=== PATIENT | female | born 1965 | race Caucasian/White ===

== ENCOUNTER 2017-05-04 17:23 | Emergency (ER) | payer OTHER ==
[2017-05-04 17:35] VITALS: BMI 25.4
[2017-05-04] MEDS ORDERED: ALBUTEROL SO4 2.5/IPRATROPIUM 0.5 INH SOL 3 ML VIAL.NEB. NEB ONE ×3 (17:37→18:33)
--- NOTE | 2017-05-04 17:47 | PDOC ---
History of Present Illness - General Chief Complaint: Chest Pain Stated Complaint: CHEST PAIN Time Seen by Provider: 05/04/17 17:46 History Source: Patient Exam Limitations: No Limitations - History of Present Illness Initial Comments: 05/04/17 17:47 Patient is a 52 year old female with history of asthma with 2x intubations presenting with chest pain and lightheadedness for 2 hours. Patient was shopping with her daughter and started having a stabbing 7/10 pain in the center of her chest after running into the store. The pain initially radiated to her back and left side of her neck and was associated with a lightheadedness that lasted about 2 minutes, nausea w/o vomiting and a headache. In the ED the patient is diffusely wheezy, short of breath and endorsing residual chest discomfort with a stiffness in her left neck. Patient endorses having these symptoms multiple times in the past. Patient also endorses a history of palpitations but denies any temporal relationship to the chest pain. Denies fever, chills, current headache, abdominal pain nausea, vomiting, diarrhea, constipation and dysurea, Patient is post menopausal (late 30s) and denies any recent immobilization, travel or surgeries. Patient smoked 1 pack a week for 15 years and stopped 15 years ago. Denies drug use. Endorses a significant family history of heart problems at an early age including her mother, father and brother. Jai Alai Player: Dr. Bearden Past History - Past Medical History Allergies/Adverse Reactions: Allergies Allergy/AdvReac Type Severity Reaction Status Date / Time No Known Allergies Allergy Verified 05/04/17 17:31 Home Medications: Ambulatory Orders Albuterol 0.083% Nebulizer Denise [Ventolin 0.083% Nebulizer Soln -] 1 neb NEB ONCE 05/04/17 Aspirin [ASA -] 81 mg PO DAILY 05/04/17 Cetirizine HCl [Zyrtec -] 10 mg PO DAILY 05/04/17 Montelukast Na [Singulair -] 10 mg PO HS 05/04/17 Prednisone [Prednisone 50 MG TABLETS] 50 mg PO DAILY #7 tablet 05/04/17 Asthma: Yes (2 INTUBATIONS.) Cardiac Disorders: Yes (MITRAL VALVE PROLAPSE) - Surgical History Abdominal Surgery: No - Immunization History Immunization Up to Date: Yes - Suicide/Smoking/Psychosocial Hx Smoking Status: No Smoking History: Never smoked Have you smoked in the past 12 months: No Number of Cigarettes Smoked Daily: 0 Information on smoking cessation initiated: No Hx Alcohol Use: No Drug/Substance Use Hx: No Substance Use Type: None Review of Systems - Review of Systems Able to Perform ROS?: Yes Comments:: GEN: Denies fever, chills, recent illness HEENTM: Denies sore throat, Changes in vision, Changes in hearing Respiratory: Endorses Shortness of Breath; Denies Cough Cardiac: Endorses Chest Pain/discomfort, lightheadedness ; Denies Syncope ABD/GI: Endorses Nausea; Denies Abdominal Pain, Vomiting, Diarrhea, Constipation : Denies Dysuria, Burning on urination, Vaginal bleeding Musculoskeletal: Endorses neck pain, upper back pain; Denies muscle or joint pain Integumentary: Denies diaphoresis, rashes, bruises Neurological: Endorses JORGENSEN; Denies dizziness, weakness All Other Systems Reviewed and Negative Is the patient limited Bhutanese proficient: No *Physical Exam - Vital Signs Last Vital Signs Temp Pulse Resp BP Pulse Ox 98.0 F 78 18 116/78 97 05/04/17 17:31 05/04/17 17:31 05/04/17 17:31 05/04/17 17:31 05/04/17 17:31 - Physical Exam Comments: GENERAL: AAOx3, nourished and generally well appearing, obese, NAD HEAD: NCAT EYES: PERRLA, EOMI, sclera anicteric, conjunctiva clear ENT: Auricles normal inspection, hearing grossly normal, nares patent, no nasal discharge, no congestion, oropharynx clear without exudates, MMM NECK: supple, normal ROM, no LAD, no JVD, no masses RESP: speaking in full sentences, lungs diffusely wheezy, L>>R, symmetrical chest expansion, no apparent respiratory distress HEART: RRR, normal S1-S2, no MRG, peripheral pulses normal and equal bilaterally ABDOMEN: soft, NTND, nlBSx4, no guarding, no rebound, no masses MUSCULOSKELETAL: no CVA Tenderness EXTREMITIES: normal inspection, moving all extremities, full ROM, strength 5/5, sensation grossly intact NEUROLOGICAL: CN II-XII grossly intact, normal speech, normal gait, no focal sensorimotor deficits SKIN: warm, dry, normal turgor, no rashes or lesions noted. Heart Score/ECG Review - History History: Slightly suspicious - Electrocardiogram EKG: Normal - Age Age: 45-65 - Risk Factors Risk Factors Heart Score: Yes Smoking History, Yes Positive family hx of cardiac disease, Yes Hx Obesity Based on the list above the patient has:: >/=3 risk factors or Hx atherosclerotic disease - Troponin Troponin: </= normal limit - Score Heart Score - Total: 3 ED Treatment Course - LABORATORY CBC & Chemistry Diagram: 05/04/17 18:09 05/04/17 18:00 - Medications Given in the ED: ED Medications Discontinued Medications Generic Name Dose Route Start Last Admin Trade Name Freq PRN Reason Stop Dose Admin Albuterol/Ipratropium 1 amp 05/04/17 17:37 05/04/17 17:37 Duoneb - NEB 05/04/17 17:38 1 amp NOW ONE Administration Medical Decision Making - Medical Decision Making 52 yo female with history of asthma and fh of heart problems and chest pains on exertion 2 hours ago. Presents to the ED with difficulty breathing and wheezy lungs ddx includes but but is not limited ACS, asthma exacerbation, PE, anxiety steroids, duoneb, mag fluids cbc/cmp monitor and reassess 05/04/17 18:06 EKG reviewed Wells score 0 CBC WBC 10.6 K/mm3 (4.0-10.0) H 05/04/17 18:09 RBC 4.34 M/mm3 (3.60-5.2) 05/04/17 18:09 Hgb 13.3 GM/dL (10.7-15.3) 05/04/17 18:09 Hct 39.4 % (32.4-45.2) 05/04/17 18:09 MCV 90.8 fl (80-96) 05/04/17 18:09 MCH 30.7 pg (25.7-33.7) 05/04/17 18:09 MCHC 33.8 g/dl (32.0-36.0) 05/04/17 18:09 RDW 12.4 % (11.6-15.6) 05/04/17 18:09 Plt Count 252 K/MM3 (134-434) 05/04/17 18:09 MPV 8.2 fl (7.5-11.1) 05/04/17 18:09 Neutrophils % 58.2 % (42.8-82.8) 05/04/17 18:09 Lymphocytes % 24.2 % (8-40) 05/04/17 18:09 Monocytes % 7.6 % (3.8-10.2) 05/04/17 18:09 Eosinophils % 8.9 % (0-4.5) H 05/04/17 18:09 Basophils % 1.1 % (0-2.0) 05/04/17 18:09 mild leukocytosis consistent with a stress reaction. 05/04/17 18:46 Laboratory Tests 05/04/17 18:09 Troponin I < 0.02 enzymes reassuring for ACS Heart score 1-3, low risk 05/04/17 18:54 CMP Sodium 143 mmol/L (136-145) 05/04/17 18:00 Potassium 3.9 mmol/L (3.5-5.1) 05/04/17 18:00 Chloride 106 mmol/L (98-107) 05/04/17 18:00 Carbon Dioxide 29 mmol/L (21-32) 05/04/17 18:00 Anion Gap 8 (8-16) 05/04/17 18:00 BUN 14 mg/dL (7-18) D 05/04/17 18:00 Creatinine 0.7 mg/dL (0.55-1.02) 05/04/17 18:00 Creat Clearance w eGFR > 60 (>60) 05/04/17 18:00 Random Glucose 99 mg/dL (74-106) 05/04/17 18:00 Calcium 8.5 mg/dL (8.5-10.1) 05/04/17 18:00 Total Bilirubin 0.2 mg/dL (0.2-1.0) 05/04/17 18:00 AST 16 U/L (15-37) D 05/04/17 18:00 ALT 28 U/L (12-78) D 05/04/17 18:00 Alkaline Phosphatase 86 U/L (45-117) D 05/04/17 18:00 Creatine Kinase 69 IU/L (26-192) 05/04/17 18:09 Troponin I < 0.02 ng/ml (0.00-0.05) 05/04/17 18:09 Total Protein 7.2 g/dl (6.4-8.2) 05/04/17 18:00 Albumin 3.9 g/dl (3.4-5.0) 05/04/17 18:00 TSH 1.82 uIU/ml (0.358-3.74) 05/04/17 18:20 Within normal limits 05/04/17 19:03 On reassessment patient still has significant wheezing in the left lung, possible admission. Patient care signed out the Dr. Putnam and the night team *DC/Admit/Observation/Transfer Diagnosis at time of Disposition: Asthma exacerbation Qualifiers: Asthma severity: unspecified severity Asthma persistence: unspecified Qualified Code(s): J45.901 - Unspecified asthma with (acute) exacerbation - Discharge Dispostion Disposition: HOME Condition at time of disposition: Good - Prescriptions Prescriptions: Prednisone [Prednisone 50 MG TABLETS] 50 mg PO DAILY #7 tablet - Referrals Referrals: Ramiro Chery [Primary Care Provider] - - Patient Instructions Printed Discharge Instructions: DI for Asthma -- Adult
--- NOTE | 2017-05-04 18:00 | PDOC ---
Attending Attestation - HPI HPI: 05/04/17 18:26 The patient is a 52 year old female, with a significant past medical history of asthma(2 intubations) and mitral valve prolapse, who presents to the emergency department with wheezing, chest pain, and lightheadedness for approximately 2 hours. Patient reports she became wheezy s/p running into the supermarket. Patient reports chest pain secondary to wheezing, but denies any diaphoresis, palpitations, or lower extremity edema. She denies any fever, chills, cough, or sore throat. - Physicial Exam PE: 05/04/17 18:26 GENERAL: Awake, alert, and fully oriented, in no acute distress HEAD: No signs of trauma EYES: PERRLA, EOMI, sclera anicteric, conjunctiva clear ENT: Auricles normal inspection, hearing grossly normal, nares patent, oropharynx clear without exudates. Moist mucosa NECK: Normal ROM, supple, no lymphadenopathy, JVD, or masses LUNGS: Diffuse wheezing. Breath sounds equal. No crackles HEART: Tachycardic. Regular rhythm, normal S1 and S2, no murmurs, rubs or gallops ABDOMEN: Soft, nontender, normoactive bowel sounds. No guarding, no rebound. No masses EXTREMITIES: Normal range of motion, no edema. No clubbing or cyanosis. No cords, erythema, or tenderness NEUROLOGICAL: Cranial nerves II through XII grossly intact. Normal speech, normal gait SKIN: Warm, Dry, normal turgor, no rashes or lesions noted. - Medical Decision Making 05/04/17 18:26 Documentation prepared by Dian Cartagena, acting as director medical surgical for Jaymie Leblanc DO. <Dian Cartagena - Last Filed: 05/04/17 18:29> - Resident Resident Name: Tutu Cornejo - ED Attending Attestation I have performed the following: I have examined & evaluated the patient, The case was reviewed & discussed with the resident, I agree w/resident's findings & plan, Exceptions are as noted - Critical Care Time Total Critical Care Time: 30 Critical Care Statement: The care of this patient involved high complexity decision making to prevent further life threatening deterioration of the patient 's condition and/or to evaluate & treat vital organ system(s) failure or risk of failure. - Medical Decision Making 05/04/17 18:00 I, Dr. Jaymie Leblanc, DO, attest that this document has been prepared under my direction and personally reviewed by me in its entirety. I further attest, that it accurately reflects all work, treatment, procedures and medical decision -making performed by me. 05/04/17 18:32 a/p: 52yo female with CP w exertion, but also an asthma exacerbation -ekg -labs -cxr -ivf -mag -trop -reassess <Jaymie Leblanc - Last Filed: 05/04/17 19:06> Heart Score/ECG Review - ECG Intrepretation Comment:: 05/04/17 18:33 sinus at 76, nl axis, nl interval, no acute st/t wave findings <Jaymie Leblanc - Last Filed: 05/04/17 19:06>
[2017-05-04] MEDS ORDERED: methylPREDNISolone NA SUCC 125 MG/2 ML VIAL IVPB ONE (18:07)
[2017-05-04 18:16] LABS: BASOPHIL 1.1 % (0-2.0)
[2017-05-04 18:19] LABS: EOSINOPHIL 8.9 % (0-4.5); MCH 30.7 pg (25.7-33.7); MCHC 33.8 g/dl (32.0-36.0); MEAN CELL VOLUME 90.8 fl (80-96); MEAN PLT VOLUME 8.2 fl (7.5-11.1); NEUTROPHILS 58.2 % (42.8-82.8); PLATELET COUNT 252 K/MM3 (134-434); RDW 12.4 % (11.6-15.6); WHITE BLOOD COUNT 10.6 K/mm3 (4.0-10.0)
[2017-05-04 18:27] VITALS: PULSE 69; TEMP 98.2
[2017-05-04] MEDS ORDERED: MAGNESIUM SULF 50% (8.12 MEQ/2 ML-1 GM VIAL) IVPB ONE (18:32)
[2017-05-04] MEDS ORDERED: methylPREDNISolone NA SUCC 125 MG/2 ML VIAL ONE (18:33)
[2017-05-04] MEDS ORDERED: SODIUM CHLORIDE 1,000 ML IV STA (18:38)
[2017-05-04 18:39] LABS: CPK 69 IU/L (26-192)
[2017-05-04 18:40] LABS: TROPONIN I < 0.02 ng/ml (0.00-0.05)
[2017-05-04 18:44] LABS: ALBUMIN 3.9 g/dl (3.4-5.0); ANION GAP 8 (8-16); CALCIUM 8.5 mg/dL (8.5-10.1); CO2 29 mmol/L (21-32); CREATININE 0.7 mg/dL (0.55-1.02); GLUCOSE,RANDOM 99 mg/dL (74-106); SGOT/AST 16 U/L (15-37); TOT PROT 7.2 g/dl (6.4-8.2)
[2017-05-04] MEDS ORDERED: MAGNESIUM SULF 50% (8.12 MEQ/2 ML-1 GM VIAL) ONE (18:45)
[2017-05-04 18:50] LABS: ALK PHOS 86 U/L (45-117); BILIRUBIN,TOTAL 0.2 mg/dL (0.2-1.0); SGPT/ALT 28 U/L (12-78)
[2017-05-04 18:59] VITALS: BP 110/80
--- NOTE | 2017-05-04 19:26 | PDOC ---
*Physical Exam - Vital Signs Last Vital Signs Temp Pulse Resp BP Pulse Ox 98.2 F 69 20 110/80 97 05/04/17 18:18 05/04/17 18:18 05/04/17 18:18 05/04/17 18:57 05/04/17 18:18 ED Treatment Course - LABORATORY CBC & Chemistry Diagram: 05/04/17 18:09 05/04/17 18:00 - ADDITIONAL ORDERS Additional order review: Laboratory Results 05/04/17 05/04/17 05/04/17 18:20 18:09 18:00 Sodium 143 Potassium 3.9 Chloride 106 Carbon Dioxide 29 Anion Gap 8 BUN 14 D Creatinine 0.7 Creat Clearance w eGFR > 60 Random Glucose 99 Calcium 8.5 Total Bilirubin 0.2 AST 16 D ALT 28 D Alkaline Phosphatase 86 D Creatine Kinase 69 Troponin I < 0.02 Total Protein 7.2 Albumin 3.9 TSH 1.82 05/04/17 18:09 RBC 4.34 MCV 90.8 MCHC 33.8 RDW 12.4 MPV 8.2 Neutrophils % 58.2 Lymphocytes % 24.2 Monocytes % 7.6 Eosinophils % 8.9 H Basophils % 1.1 - Medications Given in the ED: ED Medications Discontinued Medications Generic Name Dose Route Start Last Admin Trade Name Freq PRN Reason Stop Dose Admin Albuterol/Ipratropium 1 amp 05/04/17 17:37 05/04/17 17:37 Duoneb - NEB 05/04/17 17:38 1 amp NOW ONE Administration Albuterol/Ipratropium 1 amp 05/04/17 18:09 05/04/17 18:43 Duoneb - NEB 05/04/17 18:10 1 amp ONCE ONE Administration Magnesium Sulfate 1 gm 05/04/17 18:32 05/04/17 18:57 Magnesium Sulfate IVPB 05/04/17 18:33 1 gm ONCE ONE Administration Methylprednisolone Sodium Succinate 125 mg 05/04/17 18:07 05/04/17 18:43 Solu-Medrol - IVPB 05/04/17 18:08 125 mg ONCE ONE Administration Medical Decision Making - Medical Decision Making 05/04/17 19:26 Care taken over from Dr. Cornejo. 05/04/17 19:38 Patient examined after 2nd duoneb treatment. Currently resting comfortably without mask and breathing well. No complaints. Slight wheeze heard on auscultation of upper lobe of right lung but otherwise clear. Will re-evaluate periodically to ensure stable. 05/04/17 22:14 Patient comfortable, stable, and clear to auscultation. Will discharge with instructions to follow-up with PCP this week. Patient verbalized understanding, copy of labs given. 05/04/17 22:23 Rx for week of prednisone given as well for bridge therapy. *DC/Admit/Observation/Transfer Diagnosis at time of Disposition: Asthma exacerbation Qualifiers: Asthma severity: unspecified severity Asthma persistence: unspecified Qualified Code(s): J45.901 - Unspecified asthma with (acute) exacerbation - Discharge Dispostion Disposition: HOME - Prescriptions Prescriptions: Prednisone [Prednisone 50 MG TABLETS] 50 mg PO DAILY #7 tablet - Referrals Referrals: Ramiro Chery [Primary Care Provider] - - Patient Instructions Printed Discharge Instructions: DI for Asthma -- Adult
[2017-05-04 20:58] LABS: URINE APPEARANCE CLEAR; URINE BILIRUBIN NEGATIVE (NEGATIVE); URINE BLOOD 2+ (NEGATIVE); URINE COLOR YELLOW; URINE GLUCOSE (UA) NEGATIVE (NEGATIVE); URINE KETONE NEGATIVE (NEGATIVE); URINE NITRITE NEGATIVE (NEGATIVE); URINE PROTEIN NEGATIVE (NEGATIVE); URINE UROBILINOGEN NEGATIVE mg/dL (0.2-1.0)
[2017-05-04 21:11] LABS: URINE BACTERIA RARE /hpf (NONE SEEN); URINE MUCUS RARE; URINE RBC 4 /hpf (0-3); URINE WBC 1 /hpf (3-5)
[2017-05-05 11:27] LABS: URINE LEUK ESTERASE Negative (NEGATIVE)
--- NOTE | 2017-05-05 12:46 | EKG ---
Test Reason : Blood Pressure : / mmHG Vent. Rate : 076 BPM Atrial Rate : 076 BPM P-R Int : 144 ms QRS Dur : 090 ms QT Int : 394 ms P-R-T Axes : 077 072 065 degrees QTc Int : 443 ms NORMAL SINUS RHYTHM INCOMPLETE RBBB WHEN COMPARED WITH ECG OF 20-SEP-2015 14:13, NO SIGNIFICANT CHANGE WAS FOUND Confirmed by GLORIA MUSE MD ([id number]) on 05/05/2017 12:46:24 PM Referred By: Confirmed By:GLORIA MUSE MD
== END 2017-05-04 22:47 | disposition home or self-care (01) ==
LOC: JER 17:23
PROC: 3E0F7GC Introduction of Other Therapeutic Substance into Respiratory Tract, Via Natural or Artificial Opening (ICD-10-PCS; principal; 2017-05-04)
PROC: 3E0F7GC Introduction of Other Therapeutic Substance into Respiratory Tract, Via Natural or Artificial Opening (ICD-10-PCS; 2017-05-04)
PROC: 3E0333Z Introduction of Anti-inflammatory into Peripheral Vein, Percutaneous Approach (ICD-10-PCS; 2017-05-04)
PROC: 3E033GC Introduction of Other Therapeutic Substance into Peripheral Vein, Percutaneous Approach (ICD-10-PCS; 2017-05-04)
DX: J45.901 Unspecified asthma with (acute) exacerbation (principal)
CPT/HCPCS: 36415; 71010-TC; 80053; 81003; 81015; 82550; 84443; 84484; 85025; 93005; 93010; 99284-25

== ENCOUNTER 2018-04-09 16:25 | Observation (INO) | payer OTHER ==
--- NOTE | 2018-04-09 16:38 | PDOC ---
Rapid Medical Evaluation Chief Complaint: Lightheaded Time Seen by Provider: 04/09/18 16:33 Medical Evaluation: Allergies Allergy/AdvReac Type Severity Reaction Status Date / Time No Known Allergies Allergy Verified 05/04/17 17:31 04/09/18 16:34 I have performed a brief in person evaluation of this patient. 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 No CV hx, no hx of AAA. PE: Skin: Clear Heart: RRR Lungs: Clear MS: Moves all extremities without difficulty Neuro: Appropriate affect, smile symmetric, negative Rhomberg Psych: appropriate affect I have ordered: CV protocol The patient will proceed to the ED for further evaluation. Discharge Disposition - Referrals Referrals: Ramiro Chery [Primary Care Provider] - - Patient Instructions - Post Discharge Activity
--- NOTE | 2018-04-09 17:01 | PDOC ---
History of Present Illness - General Chief Complaint: Lightheaded Stated Complaint: CHEST PAIN Time Seen by Provider: 04/09/18 16:33 - History of Present Illness Initial Comments: 04/09/18 17:34 The patient is a 53 year old female with a history of Asthma who presents for evaluation of chest pain. The patient reports that over the past few months, she has been having intermittent chest pressure that has been getting more frequent and progressively worse. She states that the pressure worsens with exertion as well. She states today she experienced and episode of severe chest pressure with numbness to her left arm and left leg with associated nausea and 2 episodes of non-bilious, non-bloody vomiting prompting her presentation to the ED for further evaluation. She otherwise denies fevers, chills, SOB, abdominal pain, or changes with urination or bowel movements. Past History - Past Medical History Allergies/Adverse Reactions: Allergies Allergy/AdvReac Type Severity Reaction Status Date / Time No Known Allergies Allergy Verified 04/09/18 16:38 Home Medications: Ambulatory Orders Albuterol 0.083% Nebulizer Denise [Ventolin 0.083% Nebulizer Soln -] 1 neb NEB QID PRN 05/04/17 Cetirizine HCl [Zyrtec -] 10 mg PO DAILY 05/04/17 Montelukast Na [Singulair -] 10 mg PO HS 05/04/17 Budesonide [Pulmicort 0.5 mg Nebulizer -] 1 neb NEB BID 04/10/18 Fluticasone Prop 0.05% Nasal [Flonase -] 1 - 2 spray NS BID 04/10/18 Ipratropium/Albuterol Sulfate [Combivent Respimat 20-100 Mcg] 2 puff IH BID LORazepam [Ativan] 0.5 mg PO DAILY 04/10/18 Lisinopril/Hydrochlorothiazide [Lisinopril-Hctz 10-12.5 mg Tab] 1 tab PO DAILY 04/10/18 Asthma: Yes (2 INTUBATIONS.) Cardiac Disorders: Yes (MITRAL VALVE PROLAPSE) COPD: No - Surgical History Abdominal Surgery: No - Immunization History Immunization Up to Date: Yes - Suicide/Smoking/Psychosocial Hx Smoking Status: No Smoking History: Never smoked Have you smoked in the past 12 months: No Number of Cigarettes Smoked Daily: 0 Information on smoking cessation initiated: No Hx Alcohol Use: Yes (social) Drug/Substance Use Hx: No Substance Use Type: None Review of Systems - Review of Systems Comments:: 04/09/18 17:38 Constitutional: No fevers, chills, fatigue, malaise HEENT: No Rhinorrhea, nasal congestion, visual changes Cardiovascular: Chest pressure. No syncope, palpitations, lightheadedness Respiratory: No Cough, SOB, Hemoptysis, Gastrointestinal: Nausea, vomiting. No Abdominal pain, Constipation, Diarrhea, Melena Genitourinary: No Dysuria, Frequency, Urgency, Hesitancy, Hematuria, Flank pain Musculoskeletal: No Myalgia, arthralgia Skin: No rashes, itching, bruising, pallor Neurologic: Numbness. No Headache, Dizziness, Weakness, or Tingling Psychiatric: No Hallucinations. No SI or HI *Physical Exam - Vital Signs Last Vital Signs Temp Pulse Resp BP Pulse Ox 98.7 F 97 H 17 123/82 99 04/09/18 16:34 04/09/18 16:34 04/09/18 16:34 04/09/18 16:34 04/09/18 16:34 - Physical Exam Comments: 04/09/18 17:39 General Appearance: Nourished. No Apparent Distress HEENT: No Pharyngeal Erythema, Tonsillar Exudate, Tonsillar Erythema Neck: No Cervical Lymphadenopathy Respiratory/Chest: Diffuse inspiratory and expiratory wheezing noted on exam. No Crackles, Rales, Rhonchi, Cardiovascular: Regular Rhythm, Regular Rate. No Murmur, Gallops, Rubs Gastrointestinal/Abdominal: Normal Bowel Sounds, Soft. No Guarding, Rebound, Tenderness Musculoskeletal: No CVA Tenderness Extremity: Normal Capillary Refill Integumentary: Normal Color, Dry, Warm Neurologic: Fully Oriented, Alert, Normal Mood/Affect, Normal Response, Heart Score/ECG Review - History History: Moderately suspicious - Electrocardiogram EKG: Non specific repolarization disturbance - Age Age: 45-65 - Risk Factors Risk Factors Heart Score: Yes Hx Hypertension, Yes Positive family hx of cardiac disease Based on the list above the patient has:: 1-2 risk factors - Troponin Troponin: </= normal limit - Score Heart Score - Total: 4 #1 ECG reviewed & interpreted by me at: 17:40 General ECG Interpretation: Sinus Rhythm, Normal Rate, Normal Intervals, No acute ischemic changes Compared to previous ECG there are: Changes noted (05/04/17) 04/09/18 17:40 T-wave inversions in leads V1-v3 Right ventricular Conduction delay ED Treatment Course - LABORATORY CBC & Chemistry Diagram: 04/10/18 05:30 04/10/18 05:30 Medical Decision Making - Medical Decision Making 04/09/18 17:42 The patient is a 53 year old female with a history of Asthma who presents for evaluation of chest pain. Differential includes but is not limited to: ACS, Arrhythmia, Asthma, PE, Infectious, Metabolic Derangement. Given the patient's history and physical exam, we will obtain a cbc, cmp, troponin, d-dimer, ekg chest plain film to evaluate further. We will treat the patient with iv fluids , zofran, mag, duonebs, and prednisone. We will continue to monitor and reassess while here in the ED. 04/09/18 20:35 CBC, cmp, troponin, d-dimer are unremarkable. Chest plain film is unremarkable. Given the patient's history and physical exam, we believe the patient requires observation admission for further monitoring and management. We discussed the case with the admitting team who accepted the patient for admission. *DC/Admit/Observation/Transfer Diagnosis at time of Disposition: Chest pain Qualifiers: Chest pain type: unspecified Qualified Code(s): R07.9 - Chest pain, unspecified - Discharge Dispostion Disposition: HOME Condition at time of disposition: Improved Decision to Admit order: Yes - Referrals - Patient Instructions - Post Discharge Activity
[2018-04-09 17:06] LABS: BASO % 1.2 % (0-2.0); EOS % 2.6 % (0-4.5); HEMATOCRIT 39.8 % (32.4-45.2); HEMOGLOBIN 13.4 GM/dL (10.7-15.3); LYMPH % 32.9 % (8-40); MCH 30.7 pg (25.7-33.7); MCHC 33.7 g/dl (32.0-36.0); MEAN CELL VOLUME 91.2 fl (80-96); MEAN PLT VOLUME 8.2 fl (7.5-11.1); MONO % 9.6 % (3.8-10.2); NEUT % 53.7 % (42.8-82.8); PLATELET COUNT 272 K/MM3 (134-434); RBC 4.37 M/mm3 (3.60-5.2); RDW 12.7 % (11.6-15.6); WHITE BLOOD COUNT 8.3 K/mm3 (4.0-10.0)
[2018-04-09] MEDS ORDERED: ONDANSETRON 4 MG/2 ML VIAL IVPUSH ONE (17:21)
[2018-04-09] MEDS ORDERED: SODIUM CHLORIDE 1,000 ML IV STA (17:21)
[2018-04-09] MEDS ORDERED: ALBUTEROL SO4 2.5/IPRATROPIUM 0.5 INH SOL 3 ML VIAL.NEB. NEB ONE ×2 (17:21→17:33)
[2018-04-09] MEDS ORDERED: MAGNESIUM SULF 50% (8.12 MEQ/2 ML-1 GM VIAL) IVPB ONE (17:21)
[2018-04-09] MEDS ORDERED: ONDANSETRON 4 MG/2 ML VIAL ONE (17:33)
[2018-04-09] MEDS ORDERED: MAGNESIUM 1GM/D5W - 1 GM/100 ML IVPB IVPB ONE (17:34)
[2018-04-09] MEDS ORDERED: predniSONE 20 MG TABLET (UD) PO ONE (17:34)
[2018-04-09 17:37] LABS: ALBUMIN 4.3 g/dl (3.4-5.0); ANION GAP 7 MMOL/L (8-16); BILIRUBIN,TOTAL 0.4 mg/dL (0.2-1); BLOOD UREA NITROGEN 12 mg/dL (7-18); CALCIUM 8.8 mg/dL (8.5-10.1); CHLORIDE 106 mmol/L (98-107); CO2 26 mmol/L (21-32); CREATININE 0.8 mg/dL (0.55-1.3); GLUCOSE,RANDOM 99 mg/dL (74-106); POTASSIUM 3.9 mmol/L (3.5-5.1); SGOT/AST 43 U/L (15-37); SGPT/ALT 83 U/L (13-61); SODIUM 139 mmol/L (136-145); TOT PROT 7.7 g/dl (6.4-8.2)
[2018-04-09 17:40] LABS: ALK PHOS 120 U/L (45-117)
[2018-04-09] MEDS ORDERED: predniSONE 20 MG TABLET (UD) ONE (17:45)
--- NOTE | 2018-04-09 18:48 | PDOC ---
Attending Attestation - Resident Resident Name: Nando Saldivar - ED Attending Attestation I have performed the following: I have examined & evaluated the patient, The case was reviewed & discussed with the resident, I agree w/resident's findings & plan, Exceptions are as noted - HPI HPI: 04/09/18 18:53 53 F with h/o asthma presenting with chest pain. Pt reports chest pressure that is worse with exertion. Also endorses DORANTES but no SOB at rest. Denies F/C. Denies cough. Denies leg swelling, no recent travel/immobilization. - Physicial Exam PE: 04/09/18 18:56 "GENERAL: Awake, alert, and fully oriented, in no acute distress. HEAD: No signs of trauma EYES: PERRLA, EOMI, sclera anicteric, conjunctiva clear ENT: Auricles normal inspection, hearing grossly normal, nares patent, oropharynx clear without exudates. Moist mucosa NECK: Nontender, no stepoffs, Normal ROM, supple, no lymphadenopathy, JVD, or masses LUNGS: + wheezing bilaterally HEART: Regular rate and rhythm, normal S1 and S2, no murmurs, rubs or gallops ABDOMEN: Soft, nontender, normoactive bowel sounds. No guarding, no rebound. No masses EXTREMITIES: Normal range of motion, no edema. No clubbing or cyanosis. No cords, erythema, or tenderness NEUROLOGICAL: Cranial nerves II through XII intact. 5/5 strength and sensation in all extremities, Normal speech, normal gait, normal cerebellar function SKIN: Warm, Dry, normal turgor, no rashes or lesions noted." - Critical Care Time Total Critical Care Time: 45 Critical Care Statement: The care of this patient involved high complexity decision making to prevent further life threatening deterioration of the patient 's condition and/or to evaluate & treat vital organ system(s) failure or risk of failure. - Medical Decision Making 04/09/18 19:07 53 F with exertional chest pain. Will need ACS evaluation as pt has new TWI on EKG. Will also tx for asthma flare given wheezing on exam. - Labs, trop, ddimer - CXR - Nebs, steroids - Admit
--- NOTE | 2018-04-09 19:29 | PN ---
Teaching Attending Note Name of Resident: Jennifer Holman ATTENDING PHYSICIAN STATEMENT I saw and evaluated the patient. I reviewed the resident's note and discussed the case with the resident. I agree with the resident's findings and plan as documented. SUBJECTIVE: Patient is a 53 year old woman with a history of Mitral Valve Prolapse, incomplete RBBB, tobacco use and Asthma (intubated twice) who presents for evaluation of chest pain. The patient reports that over the past few months, she has been having intermittent chest pressure that has been getting more frequent and progressively worse. She states that the pressure worsens with exertion as well. She states today she experienced and episode of severe chest pressure with numbness to her left arm and left leg with associated nausea and 2 episodes of non-bilious, non-bloody vomiting prompting her presentation to the ED for further evaluation. She has had multiple ER visits in the past for chest pain and has a strong FH of CAD. She otherwise denies fevers, chills, SOB , abdominal pain, or changes with urination or bowel movements. OBJECTIVE: Alert Vital Signs Period Temp Pulse Resp BP Sys/Lynne Pulse Ox Last 24 Hr 98.7 F 97 17 123/82 99 HEENT: No Jaundice, eye redness or discharge, PERRLA, EOMI. Normocephalic, atraumatic. External ears are normal and hearing is grossly intact. No nasal discharge. Neck: Supple, nontender. No palpable adenopathy or thyromegaly. No JVD Chest: Good effort. Expiratory wheezing. Heart: Regular. No S3, rub or murmur Abdomen: Not distended, soft, nontender and no HSM. No rebound or guarding. Normoactive bowel sounds. Ext: Peripheral pulses intact. No leg edema. Skin: Warm and dry. No petechiae, rash or ecchymosis. Neuro: Alert. Oriented x3. CN 2-12 grossly intact. Sensation grossly intact in all four extremities and DTR are symmetric. Home Medications Medication Instructions Recorded Albuterol 0.083% Nebulizer Denise 1 neb NEB PRN PRN 05/04/17 [Ventolin 0.083% Nebulizer Soln -] Aspirin [ASA -] 81 mg PO DAILY 05/04/17 Cetirizine HCl [Zyrtec -] 10 mg PO DAILY 05/04/17 Montelukast Na [Singulair -] 10 mg PO HS 05/04/17 Prednisone [Prednisone 50 MG 50 mg PO PRN PRN 04/09/18 TABLETS] Abnormal Lab Results 04/09/18 16:54 Anion Gap 7 L AST 43 H ALT 83 H Alkaline Phosphatase 120 H ASSESSMENT AND PLAN: 1. Chest pain - Pain is atypical. Troponin is normal and has new T wave inversion in V3. Will admit to telemetry to rule out ACS. Get ECHO and consult cardiology. Her CXR is hyperinflated - no acute pathology. Get upper abdominal sonogram and hepatitis serology and consult GI for elevated LFTs. Give duoneb, spiriva and symbicort. 2. DVT prophylaxis - Lovenox 40 mg SQ q 24 hours. 3. Advance directives - Full code
[2018-04-09] MEDS ORDERED: ALBUTEROL SO4 2.5/IPRATROPIUM 0.5 INH SOL 3 ML VIAL.NEB. NEB PRN (20:57)
[2018-04-09] MEDS ORDERED: ALPRAZolam 0.25 MG TABLET PO ONE (21:04)
--- NOTE | 2018-04-09 21:41 | HP ---
CHIEF COMPLAINT: Chest Pain PCP: Dr. Chery ([place], [place]) ELECTRICIAN POWERHOUSE: Dr. Bearden HISTORY OF PRESENT ILLNESS: 53 y/o F, accompanied by her sister and sisters sushila, with a PMHx of Asthma and recently diagnosed RBBB presents after experiencing Chest pain. For the past year, she has experienced numerous episodes of chest pain accompanied by neck stiffness that last 15-20 seconds and resolve with changes in position. Today while shopping, the chest pain felt more severe, came on suddenly and caused her to stop shopping and visit the ED. She describes the chest pain as mid-sternal pressure, at worst 10/10, that radiates to her neck. The pain does not change with movement or breathing and is not reproducible. She denies any recent trauma or rashes to the area. The chest pressure was accompanied by feeling jittery, nervousness, palpitations, and diaphoresis. It is 4/10 pain currently. She says that normally, she tries to stop herself from exertional activities before her Asthma flares; Denies any SOB accompanying todays episode. In January/February, Dulera (2 puffs daily) and Nucala (mepolizumab, 1 shot monthly) were added to her Asthma regimen. Since then, patient has noticed her BP has been elevated on routine checks (140s/120s) and she has experienced dyspnea on exertion. Today after receiving her third Nucala shot, she felt lightheaded as well as numbness and tingling in her left upper and lower extremity, and feeling like she would pass out if she closed her eyes. Patient says she is currently using her Ventolin inhaler ~25 times a week and waking up 13-15 times at night to use. Patient denies any other hx of high blood pressure, DM, CKD, HLD. ER course was notable for: (1) Duoneb x2, Zofran (2) NS Bolus (3) Prednisone 60mg PO Recent Travel: Visited [place] in February (to help daughter move for medical school) PAST MEDICAL HISTORY: Asthma s/p 2 intubations (7 years ago for asthma exacerbation, 9 years ago for Stachybotrys Chartarum exposure) MVP (as a child, she is unsure if recent echo done outpatient shows this however ) Anxiety GERD RBBB Early Menopause (LMP was at age 41) ?Sinus infection PAST SURGICAL HISTORY: DNC x1 Social History: Smoking: Denies current usage; 4 cigs x 10 years, quit 18 years ago Alcohol: Social Drugs: Denies Occupation: Owns her own business, provides medical services to outpatient office Residence: alone in apartment Ambulation: On her own without assist Family History: Father: DM, Asthma, Cardiac Stent placement (Unsure which vessel) Mother: Anxiety, DM, Triple Bypass, 2 MIs followed bypass Brother: IN @ age 50 Sister: Anxiety Allergies No Known Allergies Allergy (Verified 04/09/18 16:38) HOME MEDICATIONS: Home Medications Medication Instructions Recorded Albuterol 0.083% Nebulizer Denise 1 neb NEB PRN PRN 05/04/17 [Ventolin 0.083% Nebulizer Soln -] Aspirin [ASA -] 81 mg PO DAILY 05/04/17 Cetirizine HCl [Zyrtec -] 10 mg PO DAILY 05/04/17 Montelukast Na [Singulair -] 10 mg PO HS 05/04/17 Prednisone [Prednisone 50 MG 50 mg PO PRN PRN 04/09/18 TABLETS] REVIEW OF SYSTEMS CONSTITUTIONAL: Present: diaphoresis, Absent: fever, chills, generalized weakness, malaise, loss of appetite, weight change HEENT: Absent: rhinorrhea, nasal congestion, throat pain, throat swelling, difficulty swallowing, mouth swelling, ear pain, eye pain, visual changes CARDIOVASCULAR: Present: Chest pressure, palpitations, lightheadedness, Absent: syncope, irregular heart rate, peripheral edema RESPIRATORY: Present: dyspnea with exertion, Wheezing Absent: cough, shortness of breath, orthopnea, stridor, hemoptysis GASTROINTESTINAL: Absent: abdominal pain, abdominal distension, nausea, vomiting, diarrhea, constipation, melena, hematochezia GENITOURINARY: Absent: dysuria, frequency, urgency, hesitancy, hematuria, flank pain, genital pain MUSCULOSKELETAL: Absent: myalgia, arthralgia, joint swelling, back pain, neck pain SKIN: Absent: rash, itching, pallor HEMATOLOGIC/IMMUNOLOGIC: Absent: easy bleeding, easy bruising, lymphadenopathy, frequent infections ENDOCRINE: Absent: unexplained weight gain, unexplained weight loss, heat intolerance, cold intolerance NEUROLOGIC: Present: Headache, Numbness and tingling Absent: dizziness, unsteady gait, seizure, mental status changes, bladder or bowel incontinence PSYCHIATRIC: Present: Anxiety Absent: depression, suicidal or homicidal ideation, hallucinations. PHYSICAL EXAMINATION Vital Signs - 24 hr 04/09/18 04/09/18 16:34 19:05 Temperature 98.7 F 98.7 F Pulse Rate 97 H Pulse Rate [ 85 Right Radial] Respiratory 17 20 Rate Blood Pressure 123/82 Blood Pressure 135/75 [Right Arm] O2 Sat by Pulse 99 99 Oximetry (%) GENERAL: Awake, alert, and fully oriented, in no acute distress. HEAD: NCAT EYES: PERRL, EOMI THROAT: Oropharynx clear without exudates. Moist mucous membranes. NECK: No JVD LUNGS: Expiratory wheezing throughout mid and lower lung acosta HEART: Regular rate and rhythm, normal S1 and S2 without murmur. ABDOMEN: Soft, nontender, not distended, normoactive bowel sounds, no guarding MUSCULOSKELETAL: No CVA tenderness. EXTREMITIES: 2+ pulses, No calf tenderness. No peripheral edema. NEUROLOGICAL: Cranial nerves II-XII intact. Normal speech. PSYCHIATRIC: Cooperative. Good eye contact. SKIN: Warm, dry, no rashes or lesions noted. Laboratory Results - last 24 hr 04/09/18 04/09/18 04/09/18 16:54 16:54 18:00 WBC 8.3 RBC 4.37 Hgb 13.4 Hct 39.8 MCV 91.2 MCH 30.7 MCHC 33.7 RDW 12.7 Plt Count 272 MPV 8.2 Absolute Neuts (auto) 4.5 Neutrophils % 53.7 Lymphocytes % 32.9 D Monocytes % 9.6 Eosinophils % 2.6 Basophils % 1.2 Nucleated RBC % 0 D-Dimer 217 Sodium 139 Potassium 3.9 Chloride 106 Carbon Dioxide 26 Anion Gap 7 L BUN 12 Creatinine 0.8 Creat Clearance w eGFR > 60 Random Glucose 99 Calcium 8.8 Total Bilirubin 0.4 AST 43 H ALT 83 H Alkaline Phosphatase 120 H Creatine Kinase 93 Troponin I < 0.02 Total Protein 7.7 Albumin 4.3 ASSESSMENT/PLAN: 53 y/o F with a PMHx of Asthma and recently diagnosed RBBB presents after experiencing Chest pressure. Expiratory wheezes in the mid the lower lung acosta appreciated on exam. Found to have AST 43, ALT 83, Alk Phos 120. Troponin was < 0.02, D-Dimer was 217. CXR did not show any acute chest pathology on my read (pending official read). EKG showed a new t-wave inversion in V3. Patient will be observed on Tele. 1. R/O ACS - Trop x1 < 0.02 - Initial EKG shows T Wave inversion in V3 - Trend Trops, EKG - Ordered Lipid Profile, Echo - Cardiology (Dr. Bearden) consulted 2. Elevated AST and ALT - Patient mentions that her PCP has said she has had this in the past, but no workup has been done - RUQ Ultrasound and Hepatitis panel ordered - GI (Dr. Mart) consulted 3. Asthma - Pulomonology (Dr. Epstein) Consulted - Duonebs Q4 PRN 4. Anxiety - Given Alprazolam 0.5 mg x1 as patient says this is her home dose - Can restart once meds reconciled 5. FEN - PO Fluids - Lytes WNL - Diabetic, low cholesterol diet 6. PPx - DVT: Lovenox Dispo: Tele-Obs, will need med rec Visit type - Emergency Visit Emergency Visit: Yes ED Registration Date: 04/10/18 Care time: The patient presented to the Emergency Department on the above date and was hospitalized for further evaluation of their emergent condition. - New Patient This patient is new to me today: Yes Date on this admission: 04/10/18 - Critical Care Critical Care patient: No Hospitalist Screening - Colonoscopy Questionnaire Colonoscopy Questionnaire: Colonoscopy Questionnaire - Patient: 50 - 75 years old and never had a screening colonoscopy: Unknown History of colon or rectal polyps, or CA: Unknown History of IBD, Crohn's disease or UC: Unknown History of abdominal radiation therapy as a child: Unknown - Relative: 1 with colon or rectal CA, or polyps at age 60 or younger: Unknown Colon or rectal CA diagnosed at age 45 or younger: Unknown Multiple relatives with colon or rectal CA: Unknown - Outcome: Screening Result: Negative Screen
[2018-04-09 23:07] VITALS: BMI 26.6
[2018-04-09] MEDS ORDERED: ACETAMINOPHEN 500 MG TABLET (FP) PO ONE (23:15)
[2018-04-10 06:52] LABS: BASO % 0.4 % (0-2.0); HEMATOCRIT 38.5 % (32.4-45.2); HEMOGLOBIN 12.8 GM/dL (10.7-15.3); LYMPH % 16.4 % (8-40); MCH 30.6 pg (25.7-33.7); MCHC 33.4 g/dl (32.0-36.0); MEAN CELL VOLUME 91.6 fl (80-96); MEAN PLT VOLUME 8.6 fl (7.5-11.1); MONO % 5.1 % (3.8-10.2); NEUT % 78.1 % (42.8-82.8); PLATELET COUNT 258 K/MM3 (134-434); RDW 12.8 % (11.6-15.6); WHITE BLOOD COUNT 7.2 K/mm3 (4.0-10.0)
[2018-04-10 07:22] LABS: POTASSIUM 4.6 mmol/L (3.5-5.1)
[2018-04-10 09:21] LABS: ALBUMIN 3.9 g/dl (3.4-5.0); ANION GAP 9 MMOL/L (8-16); BLOOD UREA NITROGEN 9 mg/dL (7-18); CALCIUM 8.9 mg/dL (8.5-10.1); CHLORIDE 106 mmol/L (98-107); CO2 24 mmol/L (21-32); CREATININE 0.7 mg/dL (0.55-1.3); GLUCOSE,RANDOM 124 mg/dL (74-106); MAGNESIUM 2.6 mg/dL (1.8-2.4); SGOT/AST 40 U/L (15-37); SGPT/ALT 80 U/L (13-61); SODIUM 139 mmol/L (136-145)
[2018-04-10 09:25] LABS: ALK PHOS 104 U/L (45-117); BILIRUBIN,TOTAL 0.4 mg/dL (0.2-1); CHOLESTEROL 209 mg/dL (50-200); HDL CHOLESTEROL 73 mg/dL (40-60); TOT PROT 7.1 g/dl (6.4-8.2); TRIGLYCERIDES 48 mg/dL (0-150)
[2018-04-10] MEDS ORDERED: ENOXAPARIN NA (PORCINE) 40 MG/0.4 ML DISP.SYRIN SQ SCH (10:00)
--- NOTE | 2018-04-10 11:10 | EKG ---
Test Reason : Blood Pressure : / mmHG Vent. Rate : 078 BPM Atrial Rate : 078 BPM P-R Int : 152 ms QRS Dur : 108 ms QT Int : 414 ms P-R-T Axes : 053 033 029 degrees QTc Int : 471 ms NORMAL SINUS RHYTHM POSSIBLE LEFT ATRIAL ENLARGEMENT INCOMPLETE RIGHT BUNDLE BRANCH BLOCK T WAVE ABNORMALITY, CONSIDER ANTERIOR ISCHEMIA ABNORMAL ECG WHEN COMPARED WITH ECG OF 09-APR-2018 16:38, NO SIGNIFICANT CHANGE WAS FOUND Confirmed by WILBER MALONE MD ([id number]) on 04/10/2018 11:10:03 AM Referred By: Confirmed By:WILBER MALONE MD
--- NOTE | 2018-04-10 11:21 | CON.GI ---
Consult Consult Specialty:: GI Reason for Consultation:: elevated liver chemistry - History of Present Illness History of Present Illness: chart reviewed. Per initial encounter 04/09: Patient is a 53 year old woman with a history of Mitral Valve Prolapse, incomplete RBBB, tobacco use and Asthma ( intubated twice) who presents for evaluation of chest pain. The patient reports that over the past few months, she has been having intermittent chest pressure that has been getting more frequent and progressively worse. She states that the pressure worsens with exertion as well. She states today she experienced and episode of severe chest pressure with numbness to her left arm and left leg with associated nausea and 2 episodes of non-bilious, non-bloody vomiting prompting her presentation to the ED for further evaluation. She has had multiple ER visits in the past for chest pain and has a strong FH of CAD. She otherwise denies fevers, chills, SOB, abdominal pain, or changes with urination or bowel movements. Pt reports being told by her PCP she has elevated liver enzymes and fatty liver for the last 3 years. No documented history of overt liver disease, viral, or autoimmune hepatitis personally, or in the family. No chronic ETOH or NSAIDs. No history of pancreaticobiliary problems. ~15 lb over IBW, otherwise no metabolic risk factors. [id number] US/ABDOMEN US -LIMITED Right upper quadrant abdomen ultrasound Clinical information given: elevated liver function studies The liver demonstrates diffusely increased echogenicity consistent with fatty infiltration. The liver appears unremarkable in overall size. No obvious mass lesion is noted. The gallbladder appears moderately contracted which may be on a physiologic basis. Allowing for limiting gallbladder contraction there is no obvious evidence of cholelithiasis. No pericholecystic fluid is seen. The common bile duct diameter demonstrates no discrete abnormality measuring 0.3 cm. No free intraperitoneal fluid is noted. The pancreas is partially obscured due to overlapping bowel gas. No obvious pathology is seen. There is no right hydronephrosis. Impression: Diffuse hepatic steatosis is seen. The gallbladder is moderately contracted which may be physiologic in nature. No obvious calculus is visualized. If clinically indicated correlate with two-week follow- up sonography with optimal preparative fasting. There is no definite biliary tract dilatation. Reported By: Jesus Copeland MD 04/09/18 [id number] - History Source History Provided By: Patient, Medical Record - Past Medical History ...: No - Alcohol/Substance Use Hx Alcohol Use: Yes (social) - Smoking History Smoking history: Never smoked Have you smoked in the past 12 months: No Aproximately how many cigarettes per day: 0 Home Medications - Allergies Allergies/Adverse Reactions: Allergies Allergy/AdvReac Type Severity Reaction Status Date / Time No Known Allergies Allergy Verified 04/09/18 16:38 - Home Medications Home Medications: Ambulatory Orders Albuterol 0.083% Nebulizer Denise [Ventolin 0.083% Nebulizer Soln -] 1 neb NEB PRN PRN 05/04/17 Aspirin [ASA -] 81 mg PO DAILY 05/04/17 Cetirizine HCl [Zyrtec -] 10 mg PO DAILY 05/04/17 Montelukast Na [Singulair -] 10 mg PO HS 05/04/17 Prednisone [Prednisone 50 MG TABLETS] 50 mg PO PRN PRN 04/09/18 Family Disease History - Family Disease History Family History: Unremarkable Review of Systems Findings/Remarks: as per HPI, ED, H&P Physical Exam-GI Vital Signs: Vital Signs Temperature 97.6 F 04/10/18 05:00 Pulse Rate 62 04/10/18 05:00 Respiratory Rate 18 04/10/18 05:00 Blood Pressure 105/74 04/10/18 05:00 O2 Sat by Pulse Oximetry (%) 97 04/09/18 21:00 Constitutional: Yes: Well Nourished, No Distress, Calm Eyes: Yes: Conjunctiva Clear HENT: Yes: Atraumatic Neck: Yes: Supple Cardiovascular: Yes: Regular Rate and Rhythm Respiratory: Yes: Regular Gastrointestinal Inspection: No: Ascites, Distention ...Auscultate: Yes: Normoactive Bowel Sounds ...Palpate: Yes: Soft. No: Firm/Rigid, Guarding, Mass, Tenderness, Tenderness, Epigastium, Tenderness, Rebound Neurological: Yes: Alert, Oriented Labs: CBC, BMP 04/10/18 05:30 04/10/18 05:30 CBCD WBC 7.2 K/mm3 (4.0-10.0) 04/10/18 05:30 RBC 4.20 M/mm3 (3.60-5.2) 04/10/18 05:30 Hgb 12.8 GM/dL (10.7-15.3) 04/10/18 05:30 Hct 38.5 % (32.4-45.2) 04/10/18 05:30 MCV 91.6 fl (80-96) 04/10/18 05:30 MCHC 33.4 g/dl (32.0-36.0) 04/10/18 05:30 RDW 12.8 % (11.6-15.6) 04/10/18 05:30 Plt Count 258 K/MM3 (134-434) 04/10/18 05:30 MPV 8.6 fl (7.5-11.1) 04/10/18 05:30 CMP Sodium 139 mmol/L (136-145) 04/10/18 05:30 Potassium 4.6 mmol/L (3.5-5.1) 04/10/18 05:30 Chloride 106 mmol/L (98-107) 04/10/18 05:30 Carbon Dioxide 24 mmol/L (21-32) 04/10/18 05:30 Anion Gap 9 MMOL/L (8-16) 04/10/18 05:30 BUN 9 mg/dL (7-18) 04/10/18 05:30 Creatinine 0.7 mg/dL (0.55-1.3) 04/10/18 05:30 Creat Clearance w eGFR > 60 (>60) 04/10/18 05:30 Calcium 8.9 mg/dL (8.5-10.1) 04/10/18 05:30 Total Bilirubin 0.4 mg/dL (0.2-1) 04/10/18 05:30 AST 40 U/L (15-37) H 04/10/18 05:30 ALT 80 U/L (13-61) H 04/10/18 05:30 Alkaline Phosphatase 104 U/L (45-117) 04/10/18 05:30 Total Protein 7.1 g/dl (6.4-8.2) 04/10/18 05:30 Albumin 3.9 g/dl (3.4-5.0) 04/10/18 05:30 Laboratory Last Values WBC 7.2 K/mm3 (4.0-10.0) 04/10/18 05:30 RBC 4.20 M/mm3 (3.60-5.2) 04/10/18 05:30 Hgb 12.8 GM/dL (10.7-15.3) 04/10/18 05:30 Hct 38.5 % (32.4-45.2) 04/10/18 05:30 MCV 91.6 fl (80-96) 04/10/18 05:30 MCH 30.6 pg (25.7-33.7) 04/10/18 05:30 MCHC 33.4 g/dl (32.0-36.0) 04/10/18 05:30 RDW 12.8 % (11.6-15.6) 04/10/18 05:30 Plt Count 258 K/MM3 (134-434) 04/10/18 05:30 MPV 8.6 fl (7.5-11.1) 04/10/18 05:30 Absolute Neuts (auto) 5.6 K/mm3 (1.5-8.0) 04/10/18 05:30 Neutrophils % 78.1 % (42.8-82.8) D 04/10/18 05:30 Lymphocytes % 16.4 % (8-40) D 04/10/18 05:30 Monocytes % 5.1 % (3.8-10.2) 04/10/18 05:30 Eosinophils % 0.0 % (0-4.5) D 04/10/18 05:30 Basophils % 0.4 % (0-2.0) 04/10/18 05:30 Nucleated RBC % 0 % (0-0) 04/10/18 05:30 D-Dimer 217 ng/ml (0-500) 04/09/18 18:00 Sodium 139 mmol/L (136-145) 04/10/18 05:30 Potassium 4.6 mmol/L (3.5-5.1) 04/10/18 05:30 Chloride 106 mmol/L (98-107) 04/10/18 05:30 Carbon Dioxide 24 mmol/L (21-32) 04/10/18 05:30 Anion Gap 9 MMOL/L (8-16) 04/10/18 05:30 BUN 9 mg/dL (7-18) 04/10/18 05:30 Creatinine 0.7 mg/dL (0.55-1.3) 04/10/18 05:30 Creat Clearance w eGFR > 60 (>60) 04/10/18 05:30 Random Glucose 124 mg/dL (74-106) H 04/10/18 05:30 Calcium 8.9 mg/dL (8.5-10.1) 04/10/18 05:30 Phosphorus 4.0 mg/dL (2.5-4.9) 04/10/18 05:30 Magnesium 2.6 mg/dL (1.8-2.4) H 04/10/18 05:30 Total Bilirubin 0.4 mg/dL (0.2-1) 04/10/18 05:30 AST 40 U/L (15-37) H 04/10/18 05:30 ALT 80 U/L (13-61) H 04/10/18 05:30 Alkaline Phosphatase 104 U/L (45-117) 04/10/18 05:30 Creatine Kinase 93 IU/L (26-192) 04/09/18 16:54 Troponin I < 0.02 ng/ml (0.00-0.05) 04/09/18 22:50 Total Protein 7.1 g/dl (6.4-8.2) 04/10/18 05:30 Albumin 3.9 g/dl (3.4-5.0) 04/10/18 05:30 Triglycerides 48 mg/dL (0-150) 04/10/18 05:30 Cholesterol 209 mg/dL (50-200) H 04/10/18 05:30 Total LDL Cholesterol 135 mg/dL (5-100) H 04/10/18 05:30 HDL Cholesterol 73 mg/dL (40-60) H 04/10/18 05:30 Imaging - Results Ultrasound: Report Reviewed Problem List - Problems (1) Liver enzyme elevation Code(s): R74.8 - ABNORMAL LEVELS OF OTHER SERUM ENZYMES Assessment/Plan A 53F with mild transaminitis, ALT predominant. MIld dyslipidemia. US - fatty liver. The transaminitis is likely multifatorial and involves metabolic and medications (i .e prednisone) component. Recommend: 15 lb wt loss, healthy, low fat diet. Outpatient work up. Obtain HBV , HCV, HAV serology, BETTE, AMA, ASMA, ALKM-1. Discussed with the patient.
[2018-04-10] MEDS ORDERED: LORATADINE 10 MG TABLET PO ONE (12:15)
--- NOTE | 2018-04-10 12:24 | EKG ---
Test Reason : Blood Pressure : / mmHG Vent. Rate : 095 BPM Atrial Rate : 095 BPM P-R Int : 140 ms QRS Dur : 096 ms QT Int : 354 ms P-R-T Axes : 065 056 042 degrees QTc Int : 444 ms NORMAL SINUS RHYTHM POSSIBLE LEFT ATRIAL ENLARGEMENT RSR' OR QR PATTERN IN V1 SUGGESTS RIGHT VENTRICULAR CONDUCTION DELAY T WAVE ABNORMALITY, CONSIDER ANTERIOR ISCHEMIA ABNORMAL ECG WHEN COMPARED WITH ECG OF 04-MAY-2017 17:34, T WAVE INVERSION NOW EVIDENT IN ANTERIOR LEADS Confirmed by KIRA MATHUR, WILBER ([id number]) on 04/10/2018 12:24:20 PM Referred By: Confirmed By:WILBER MALONE MD
--- NOTE | 2018-04-10 12:34 | CON.PULM ---
Consult Consult Specialty:: PULM/CCM Referred by:: Hospitalist Reason for Consultation:: CP / asthma - History of Present Illness Chief Complaint: CP / HTN History of Present Illness: 53 F, asthma since the age of 10. Intubation x 2 (first about 9 years ago, last was 7 years ago). Baseline PEF 350. Not steroid dependent. Saw an driver trainer from [facility] and started on Dulera and Nucala around January. Received 3rd Nucala dose yesterday. Has noted for the past 2 months conjunctival injection and hypertension to SBP 140mm Hg. Overall does feel Asthma symptoms have improved. She does snore but has been screened for OSAS. Occasional GERD symptoms. She is scheduled for nasal polyp and deviated septal repair. CXR: clear - History Source History Provided By: Patient Limitations to Obtaining History: No Limitations - Past Medical History Pulmonary: Yes: Asthma, Bronchitis, Previously Intubated. No: O2 Dependent, Pneumonia, Pulmonary Embolus, Pulmonary Fibrosis ...: No - Alcohol/Substance Use Hx Alcohol Use: Yes (social) - Smoking History Smoking history: Never smoked Have you smoked in the past 12 months: No Aproximately how many cigarettes per day: 0 Home Medications - Allergies Allergies/Adverse Reactions: Allergies Allergy/AdvReac Type Severity Reaction Status Date / Time No Known Allergies Allergy Verified 04/09/18 16:38 - Home Medications Home Medications: Ambulatory Orders Albuterol 0.083% Nebulizer Denise [Ventolin 0.083% Nebulizer Soln -] 1 neb NEB PRN PRN 05/04/17 Aspirin [ASA -] 81 mg PO DAILY 05/04/17 Cetirizine HCl [Zyrtec -] 10 mg PO DAILY 05/04/17 Montelukast Na [Singulair -] 10 mg PO HS 05/04/17 Prednisone [Prednisone 50 MG TABLETS] 50 mg PO PRN PRN 04/09/18 Review of Systems - Review of Systems Constitutional: denies: Chills, Fever, Malaise, Night Sweats, Unintentional Wgt. Loss Eyes: reports: No Symptoms HENT: reports: No Symptoms Neck: reports: No Symptoms Cardiovascular: reports: Chest Pain. denies: Edema, Palpitations, Shortness of Breath Respiratory: reports: Cough, Snoring. denies: Hemoptysis, Orthopnea, SOB, SOB on Exertion, Wheezing Gastrointestinal: reports: No Symptoms Genitourinary: reports: No Symptoms Breasts: reports: No Symptoms Reported Musculoskeletal: reports: No Symptoms Integumentary: reports: No Symptoms Neurological: reports: No Symptoms Endocrine: reports: No Symptoms Hematology/Lymphatic: reports: No Symptoms Psychiatric: reports: No Symptoms Physical Exam Vital Sings: Vital Signs Temperature 97.8 F 04/10/18 09:00 Pulse Rate 61 04/10/18 09:00 Respiratory Rate 18 04/10/18 09:00 Blood Pressure 118/74 04/10/18 09:00 O2 Sat by Pulse Oximetry (%) 97 04/10/18 07:42 Constitutional: Yes: No Distress, Calm Eyes: Yes: Conjunctiva Clear, EOM Intact HENT: Yes: Atraumatic, Normocephalic Neck: Yes: Supple, Trachea Midline Respiratory: Yes: Regular, CTA Bilaterally, Cough. No: Accessory Muscle Use, On Nasal O2, Orthopnea, Rales, Rhonchi, SOB, Stridor, Tachypnea, Wheezes ...Inspection: Yes: WNL ...Clubbing: No Gastrointestinal: Yes: Normal Bowel Sounds, Soft Renal/: Yes: WNL Musculoskeletal: Yes: WNL Extremities: Yes: WNL Edema: No Peripheral Pulses WNL: Yes Integumentary: Yes: WNL Neurological: Yes: WNL, Alert, Oriented ...Motor Strength: WNL Psychiatric: Yes: WNL, Alert, Oriented Labs: CBC, BMP 04/10/18 05:30 04/10/18 05:30 Imaging - Results Chest X-ray: Report Reviewed, Image Reviewed Problem List - Problems (1) Samter's triad Code(s): J45.909 - UNSPECIFIED ASTHMA, UNCOMPLICATED; J33.9 - NASAL POLYP, UNSPECIFIED; Z88.6 - ALLERGY STATUS TO ANALGESIC AGENT STATUS (2) Chest pain Code(s): R07.9 - CHEST PAIN, UNSPECIFIED Qualifiers: Chest pain type: unspecified Qualified Code(s): R07.9 - Chest pain, unspecified (3) Asthma Code(s): J45.909 - UNSPECIFIED ASTHMA, UNCOMPLICATED (4) Atypical chest pain Code(s): R07.89 - OTHER CHEST PAIN Assessment/Plan CP and HTN not typical of Nucala use. Has been reports of dizziness and hypotension. Asthma appears stable at this point. If cleared by cardiology, no Pulmonary contraindication for D/C Patient should follow with her Music Autographer and either see me in my office of a [facility] Secretary Specialist (has never been evaluated by Pulmonary) No smoking No indication for systemic steroids No indication for ABX Will follow if remains admitted Thank you Dr Epstein
--- NOTE | 2018-04-10 14:09 | ECHO ---
Name: MANDY BARCENAS Exam:Adult Echocardiogram Study Date: 04/10/2018 08:12 AM Age: 53 yrs Reason For Study: R/O ACS Height: 64 in Weight: 150 lb BSA: 1.7 m2 MMode/2D Measurements & Calculations IVSd: 0.79 cm Ao root diam: 2.5 cm LVIDd: 4.1 cm LA dimension: 2.9 cm LVIDs: 2.7 cm LVPWd: 0.84 cm EDV(Teich): 75.8 ml ESV(Teich): 27.6 ml Doppler Measurements & Calculations MV E max angelita: 72.8 cm/sec MR max angelita: 337.5 cm/sec MV A max angelita: 90.7 cm/sec MR max P.6 mmHg MV E/A: 0.80 MV dec time: 0.19 sec TR max angelita: 160.2 cm/sec Med Peak E' Angelita: 7.3 cm/sec TR max P.3 mmHg Med E/e': 10.0 Lat Peak E' Angelita: 11.0 cm/sec Lat E/e': 6.6 PI Vmax: 123.5 cm/sec Procedure A two-dimensional transthoracic echocardiogram with color flow and Doppler was performed. Left Ventricle The left ventricular size, thickness and function are normal. The left ventricular ejection fraction is normal. E/A reversal consistent with but not diagnostic of poor LV compliance. The left ventricular w all motion is normal. Right Ventricle The right ventricle is normal in size and function. Atria Normal left and right atrial size and function. Mitral Valve There is mild mitral valve thickening. There is no mitral valve stenosis. There is trace to mild mitr al regurgitation. Tricuspid Valve There is mild tricuspid valve thickening. There is no tricuspid stenosis. There is mild tricuspid regurgitation. Right ventricular systolic pressure is normal. Aortic Valve The aortic valve is normal in structure and function. No hemodynamically significant valvular aortic stenosis. No aortic regurgitation is present. Pulmonic Valve The pulmonic valve is not well visualized. There is no pulmonic valvular stenosis. Trace to mild pulm onic valvular regurgitation. Great Vessels The aortic root is normal size. Pericardium/Pleura There is no pericardial effusion. Interpretation Summary There is mild tricuspid regurgitation. Right ventricular systolic pressure is normal. E/A reversal consistent with but not diagnostic of poor LV compliance The left ventricular size, thickness and function are normal The left ventricular ejection fraction is normal. The left ventricular wall motion is normal. MD Anjum Tovar 04/10/2018 02:09 PM
--- NOTE | 2018-04-10 15:25 | EKG ---
Test Reason : Blood Pressure : / mmHG Vent. Rate : 075 BPM Atrial Rate : 075 BPM P-R Int : 150 ms QRS Dur : 108 ms QT Int : 396 ms P-R-T Axes : 060 040 029 degrees QTc Int : 442 ms NORMAL SINUS RHYTHM INCOMPLETE RIGHT BUNDLE BRANCH BLOCK BORDERLINE ECG WHEN COMPARED WITH ECG OF 09-APR-2018 21:21, NO SIGNIFICANT CHANGE WAS FOUND Confirmed by WILBER MALONE MD ([id number]) on 04/10/2018 3:25:07 PM Referred By: tSephanie HASSAN Confirmed By:WILBER MALONE MD
--- NOTE | 2018-04-10 16:21 | CON.CARD ---
Consult Consult Specialty:: Cardiology Referred by:: Hospitalist Reason for Consultation:: chest pain. - History of Present Illness Chief Complaint: chest pain History of Present Illness: 53 year old woman pmh asthma recently started Nucala injections and Dulera and since then has had episodes of chest pain, lightheadedness, for the past 1 year , admitted with a more severe episode of chest pain radiating to the neck with associated palpitations L hand and left leg tingling. She also notes recent elevated BP readings since starting the above meds and episodes of dyspnea on exertion.. - History Source History Provided By: Patient Limitations to Obtaining History: No Limitations - Past Medical History Pulmonary: Yes: Asthma, Bronchitis, Previously Intubated. No: O2 Dependent, Pneumonia, Pulmonary Embolus, Pulmonary Fibrosis ...: No - Alcohol/Substance Use Hx Alcohol Use: Yes (social) - Smoking History Smoking history: Never smoked Have you smoked in the past 12 months: No Aproximately how many cigarettes per day: 0 - Social History ADL: Independent History of Recent Travel: No Home Medications - Allergies Allergies/Adverse Reactions: Allergies Allergy/AdvReac Type Severity Reaction Status Date / Time No Known Allergies Allergy Verified 04/09/18 16:38 - Home Medications Home Medications: Ambulatory Orders Albuterol 0.083% Nebulizer Denise [Ventolin 0.083% Nebulizer Soln -] 1 neb NEB QID PRN 05/04/17 Aspirin [ASA -] 81 mg PO DAILY 05/04/17 Cetirizine HCl [Zyrtec -] 10 mg PO DAILY 05/04/17 Montelukast Na [Singulair -] 10 mg PO HS 05/04/17 Prednisone [Prednisone 50 MG TABLETS] 50 mg PO PRN PRN 04/09/18 Budesonide [Pulmicort 0.5 mg Nebulizer -] 1 neb NEB BID 04/10/18 Clarithromycin [Biaxin -] 500 mg PO BID 04/10/18 Fluticasone Prop 0.05% Nasal [Flonase -] 1 - 2 spray NS BID 04/10/18 Ipratropium/Albuterol Sulfate [Combivent Respimat 20-100 Mcg] 2 puff IH BID LORazepam [Ativan] 0.5 mg PO DAILY 04/10/18 Lisinopril/Hydrochlorothiazide [Lisinopril-Hctz 10-12.5 mg Tab] 1 tab PO DAILY 04/10/18 Family Disease History - Family Disease History Family Disease History: Heart Disease: Mother Review of Systems - Review of Systems Constitutional: reports: Diaphoresis. denies: No Symptoms, Chills, Fever, Lethargy, Loss of Appetite, Malaise, Night Sweats, Unintentional Wgt. Loss, Weakness, Other Eyes: denies: No Symptoms, Blind Spots, Blurred Vision, Double Vision, Eye Pain , Floaters, Photophobia, Recent Change in Vision, Other HENT: denies: No Symptoms, Difficult Swallowing, Ear Discharge, Ear Pain, Epistaxis, Gingival Bleeding, Hearing Loss, Mouth Swelling, Nasal Congestion, Ocular Prosthesis, Throat Pain, Toothache, Ringing in Ears, Other Neck: denies: No Symptoms, Decreased ROM, Lumps, Pain on Movement, Stiffness, Swollen Glands, Tenderness, Other Cardiovascular: reports: Chest Pain, Palpitations, Shortness of Breath. denies : No Symptoms, Edema, Other Respiratory: reports: SOB, SOB on Exertion, Wheezing. denies: No Symptoms, Cough, Exercise Intolerance, Hemoptysis, Orthopnea, PND, Snoring, Other Gastrointestinal: denies: No Symptoms, Abdominal Pain, Bloating, Constipation, Diarrhea, Dysphagia, Indigestion, Melena, Nausea, Rectal Bleeding, Vomiting, Vomiting Blood, Other Genitourinary: denies: No Symptoms, Burning, Discharge, Dysuria, Flank Pain, Frequency, Hematuria, Incontinence, Lesions, Menses, Pain, Testicular Mass, Testicular Pain, Testicular Swelling, Urgency, Vaginal Bleeding, Other Breasts: denies: No Symptoms Reported, See HPI, Breast Implants, Discharge from Nipple, Lumps, Pain, Skin Changes, Other Musculoskeletal: denies: No Symptoms, Back Pain, Crepitus, Decreased ROM, Extremity Pain, Joint Pain, Joint Swelling, Muscle Pain, Muscle Cramps, Muscle Weakness, Other Integumentary: denies: No Symptoms, Blister, Bruising, Change in Color, Eczema, Erythema, Incision, Lesions, Lump, Pallor, Pruritis, Rash, Wound, Other Neurological: denies: No Symptoms, Change in LOC, Change in Speech, Confusion, Dizziness, Headache, Incoordination, Numbness, Parasthesia, Pre-Existing Deficit , Seizure, Syncope, Tremors, Unsteady Gait, Weakness, Other Endocrine: denies: No Symptoms, Excessive Sweating, Flushing, Increased Hunger, Increased Thirst, Intolerance to Cold, Intolerance to Heat, Unexplained Weight Gain, Unexplained Weight Loss, Other Hematology/Lymphatic: denies: No Symptoms, Easily Bruised, Excessive Bleeding, Swollen Glands, Other Psychiatric: denies: No Symptoms, Altered Sleep Pattern, Anxiety, Depression, Hallucinations, Panic, Paranoia, Suicidal, Other Vital Signs: Vital Signs Temperature 98.1 F 04/10/18 14:00 Pulse Rate 84 04/10/18 14:00 Respiratory Rate 04/10/18 11:42 Blood Pressure 129/82 04/10/18 14:00 O2 Sat by Pulse Oximetry (%) 97 04/10/18 15:42 Constitutional: Yes: Well Nourished, No Distress, Calm Eyes: Yes: WNL, Conjunctiva Clear, EOM Intact, PERRL HENT: Yes: WNL, Atraumatic, Normocephalic Neck: Yes: WNL, Supple, Trachea Midline Respiratory: Yes: Regular, Other (prolonged expiratory phase). No: Rales, Rhonchi, SOB, Wheezes Gastrointestinal: Yes: Normal Bowel Sounds, Soft. No: Distention, Tenderness Cardiovascular: Yes: Regular Rate and Rhythm. No: Bradycardia, Tachycardia, Pulse Irregular, Gallop, Rub, Varicosities JVD: No Carotid Bruit: No PMI: Non-Displaced Heart Sounds: Yes: S1, S2. No: Split S2, S3, S4, Clicks, Gallop, Rub, Bruit Murmur: No: Systolic Murmur, Diastolic Murmur Musculoskeletal: Yes: WNL Extremities: Yes: WNL Edema: No Peripheral Pulses WNL: Yes Peripheral Pulses: 2+ Left Doralis Pedis, 2+ Right Dorsalis Pedis Integumentary: Yes: WNL Neurological: Yes: Alert, Oriented Psychiatric: Yes: Alert, Oriented - Other Data Labs, Other Data: CBC, BMP 04/10/18 05:30 04/10/18 05:30 Troponin, BNP 04/09/18 04/09/18 04/10/18 16:54 22:50 13:54 Troponin I < 0.02 < 0.02 < 0.02 Troponin, BNP 04/09/18 04/09/18 04/10/18 16:54 22:50 13:54 Troponin I < 0.02 < 0.02 < 0.02 ekg-nsr 76bpm incomplete rbbb T inversions V, V3 Echo: Report Reviewed Imaging - Results Chest X-ray: Report Reviewed, Image Reviewed EKG: Report Reviewed, Image Reviewed Other: Report Reviewed, Image Reviewed (tele-nsr, no arrhythmias) Assessment/Plan 53 year old woman pmh asthma recently started Nucala injections and Dulera and since then has had episodes of chest pain, lightheadedness, for the past 1 year , admitted with a more severe episode of chest pain radiating to the neck with associated palpitations L hand and left leg tingling. She also notes recent elevated BP readings since starting the above meds and episodes of dyspnea on exertion.. Chest pain-atypical -unlikely ACS -no ischemia on ECG -cardiac enzymes wnl -ECHO today 04/10/18 showed normal LV/RV size and systolic function, mild TR -pt reports stress test last year with Dr. Bearden that showed no ischemia -pt is acceptable from a cardiac standpoint for discharge with plan for close outpatient fup with Dr. Bearden -BP is wnl currently does not require medical Rx at this point
[2018-04-10 17:15] VITALS: BP 124/78; PULSE 76; TEMP 98.2
--- NOTE | 2018-04-10 18:24 | PN ---
Teaching Attending Note Name of Resident: Nando Forbes ATTENDING PHYSICIAN STATEMENT I saw and evaluated the patient. I reviewed the resident's note and discussed the case with the resident. I agree with the resident's findings and plan as documented. SUBJECTIVE: no cp when seen this am , no fever or chills . previous episodes that happened to her lasted for few seconds. had normal stress test a year ago with Dr. Bearden OBJECTIVE: NAD CV: RRR Lungs: scattered wheezes. good air entry ASSESSMENT AND PLAN: 53 y/o lady withh/o Asthma, and family h/o cad who presented with CP 1- Atypical CP. EKg reviewed andcompared to old EKGs . RBBB and TWI is not new ( only TWI in V3 is new ) stress test reportedly neg . close f/u with her roguer in 1 week echo reviewed. LDL 132 but 10 yr risk fro CAD is 2.9 %. no need for statin. weight loss and exercise 2- transaminitis : likley due to fatty liver. US reviewed. out patient w/u hepatitis serology taken. to follow as out pt dc home
--- NOTE | 2018-04-10 18:51 | DS ---
Physical Exam: SUBJECTIVE: Patient seen and examined at bedside. Pain had fully resolved at time of evaluation, patient had no complaints. OBJECTIVE: Vital Signs Period Temp Pulse Resp BP Sys/Lynne Pulse Ox Last 24 Hr 97.6 F-98.7 F 61-85 18-20 105-135/67-86 97-99 PHYSICAL EXAM GENERAL: A&O x 3, NAD HEAD: NC/AT EYES: PERRLA, EOMI ENT: oropharynx clear, MMM NECK: Trachea midline, full range of motion, supple. LUNGS: Good effort and air entry, minimal wheezing HEART: RRR no m/r/g ABDOMEN: +bs, soft, NT, ND EXTREMITIES: 2+ pulses, warm, well-perfused, no edema. NEUROLOGICAL: CN's, motor, sensory systems without focal deficit, gait not observed PSYCH: Normal mood, normal affect. SKIN: Warm, dry, normal turgor, no rashes or lesions noted. LABS Laboratory Results - last 24 hr 04/09/18 04/10/18 04/10/18 22:50 05:30 05:30 WBC 7.2 RBC 4.20 Hgb 12.8 Hct 38.5 MCV 91.6 MCH 30.6 MCHC 33.4 RDW 12.8 Plt Count 258 MPV 8.6 Absolute Neuts (auto) 5.6 Neutrophils % 78.1 D Lymphocytes % 16.4 D Monocytes % 5.1 Eosinophils % 0.0 D Basophils % 0.4 Nucleated RBC % 0 Sodium 139 Potassium 4.6 Chloride 106 Carbon Dioxide 24 Anion Gap 9 BUN 9 Creatinine 0.7 Creat Clearance w eGFR > 60 Random Glucose 124 H Calcium 8.9 Phosphorus 4.0 Magnesium 2.6 H Total Bilirubin 0.4 AST 40 H ALT 80 H Alkaline Phosphatase 104 Troponin I < 0.02 Total Protein 7.1 Albumin 3.9 Triglycerides 48 Cholesterol 209 H Total LDL Cholesterol 135 H HDL Cholesterol 73 H 04/10/18 13:54 WBC RBC Hgb Hct MCV MCH MCHC RDW Plt Count MPV Absolute Neuts (auto) Neutrophils % Lymphocytes % Monocytes % Eosinophils % Basophils % Nucleated RBC % Sodium Potassium Chloride Carbon Dioxide Anion Gap BUN Creatinine Creat Clearance w eGFR Random Glucose Calcium Phosphorus Magnesium Total Bilirubin AST ALT Alkaline Phosphatase Troponin I < 0.02 Total Protein Albumin Triglycerides Cholesterol Total LDL Cholesterol HDL Cholesterol IMAGING CXR 04/09/18: "No evidence of active pulmonary disease" Abdominal US 04/09/18: "Diffuse hepatic steatosis is seen. The gallbladder is moderately contracted which may be physiologic in nature. No obvious calculus is visualized. If clinically indicated correlate with two-week follow-up sonography with optimal preparative fasting. There is no definite biliary tract dilatation." HOSPITAL COURSE: Date of Admission:04/10/18 Pt is a 53 y/o F w/ PMHx severe asthma (s/p 2 intubations), longstanding RBBB, and significant cardiac family Hx, p/w episode of crushing central chest pain with numbness radiating to left arm and neck, resolved after 1 hour, additionally has been experiencing episodes of intermittent chest and neck pain x 1 year. Admitted for cardiac w/u. Troponins negative, EKG showed TWI in V3 different from previous EKGs going back to 2011 without further changes, echocardiogram showed mild TR and no other abnormality. LFTs mildly elevated. Cardiology, pulmonology (given Pt's asthma Hx), and GI consulted. Cardiology cleared for d/c with close f/u. GI and pulmonology recommended outpt f/u. Hepatitis serology pending. Patient was d/c'd home with appointments with primary care, cardiology, pulmonology, and GI, to resume home medications and instructed on importance of cardiology surveillance. Date of Discharge: 04/10/18 Minutes to complete discharge: 40 Discharge Summary Reason For Visit: ABNORMAL ELECTROCARDIOGRAPHY; CHEST PAIN Current Active Problems Chest pain (Acute) Liver enzyme elevation (Acute) Condition: Improved - Instructions Diet, Activity, Other Instructions: You were hospitalized for chest pain. Echocardiogram, EKG, and lab studies showed that you did not have a heart attack or significant acute disease of the heart. You were also noted to have elevated liver enzymes and were evaluated by a title i director. You were evaluated by a sales support assistant for management of your asthma. Referrals Please see you primary care provider within one week of discharge. Please see your substance abuse nurse, Dr. Bearden, within one week of discharge. Keeping this appointment is of the utmost importance. Please see the sales support assistant, Dr. Epstein, within two weeks of discharge. Please see the title i director, Dr. Mart, within two weeks of discharge. A repeat abdominal ultrasound will be performed at that time. Referrals have been made on your behalf to these providers. Medications/medical recommendations Please resume your home medications. If you have new chest pain, shortness of breath, fever, chills, or any other new symptoms, please return to the Emergency Department. Referrals: Castro Bearden MD [Staff Physician] - 1 Week Viraj Mart MD [Staff Physician] - 2 Weeks Ramiro Chery [Primary Care Provider] - 1 Week Reece Epstein MD [Staff Physician] - 2 Weeks Disposition: HOME - Home Medications Comprehensive Discharge Medication List: Ambulatory Orders Albuterol 0.083% Nebulizer Denise [Ventolin 0.083% Nebulizer Soln -] 1 neb NEB QID PRN 05/04/17 Cetirizine HCl [Zyrtec -] 10 mg PO DAILY 05/04/17 Montelukast Na [Singulair -] 10 mg PO HS 05/04/17 Budesonide [Pulmicort 0.5 mg Nebulizer -] 1 neb NEB BID 04/10/18 Fluticasone Prop 0.05% Nasal [Flonase -] 1 - 2 spray NS BID 04/10/18 Ipratropium/Albuterol Sulfate [Combivent Respimat 20-100 Mcg] 2 puff IH BID LORazepam [Ativan] 0.5 mg PO DAILY 04/10/18 Lisinopril/Hydrochlorothiazide [Lisinopril-Hctz 10-12.5 mg Tab] 1 tab PO DAILY 04/10/18 This patient is new to me today: No Emergency Visit: No Critical Care patient: No - Discharge Referral Referred to [facility] No
[2018-04-11 06:05] LABS: HEP.C VIRUS AB <0.1 s/co ratio (0.0-0.9)
== END 2018-04-10 18:46 | disposition home or self-care (01) ==
LOC: JER 16:25 → UNDOADMOB 18:49 → JERBED 18:49 → J4W 20:50 → INTOOBSV 20:53 → OBSVTOIN 20:53 → J4W 04-10 07:42
PROVIDERS: ADMIT Internal Medicine; ATTEND Internal Medicine
PROC: 3E013GC Introduction of Other Therapeutic Substance into Subcutaneous Tissue, Percutaneous Approach (ICD-10-PCS; principal; 2018-04-10)
PROC: 3E0F7GC Introduction of Other Therapeutic Substance into Respiratory Tract, Via Natural or Artificial Opening (ICD-10-PCS; 2018-04-10)
DX: R07.9 Chest pain, unspecified (principal); R94.31 Abnormal electrocardiogram [ECG] [EKG]; R94.5 Abnormal results of liver function studies; J45.909 Unspecified asthma, uncomplicated; F41.9 Anxiety disorder, unspecified; E78.5 Hyperlipidemia, unspecified; K76.0 Fatty (change of) liver, not elsewhere classified; I45.10 Unspecified right bundle-branch block; F17.210 Nicotine dependence, cigarettes, uncomplicated; I34.1 Nonrheumatic mitral (valve) prolapse; Z88.6 Allergy status to analgesic agent
CPT/HCPCS: 36415; 71045-TC-FY; 76705-TC; 80053; 80061; 80074; 82550; 83721; 83735; 84100; 84484; 85025; 85379; 86705; 93005; 93010; 93306-TC; 99285-25; G0378; J7030; J7620

== ENCOUNTER 2018-07-21 10:56 | Inpatient (IN) | payer OTHER ==
[2018-07-21 11:32] VITALS: BP 107/75; PULSE 77; TEMP 98.5; BMI 26.5
--- NOTE | 2018-07-21 11:36 | PDOC ---
History of Present Illness <Chiara Jimenez - Last Filed: 07/21/18 13:19> - General History Source: Patient Exam Limitations: No Limitations - History of Present Illness Initial Comments: 07/21/18 13:31 The patient is a 53 year old female, with a significant PMH of asthma (2 intubations) , right bundle branch block, mitral valve prolapse and HTN, who presents to the emergency department with chest pain began approximately 1 week ago that progressively worsened today. The patient states the sharp and "shooting" chest pain is located to the left that radiates to the left side. The patient endorses associated symptoms of cough with yellow phlegm, sweats, dizziness and respiratory distress, no relief with Prednisone. The patient denies headache, fever, chills, nausea, vomit, diarrhea and constipation. Allergies: NKDA Past surgical history: Social history: No reported PCP: Dr. Ramiro Chery Jelly Filter Tender: Dr. Bearden Documentation prepared by Castro Simms, acting as medical supply technician for Jaymie Leblanc DO, MD. <Castro Simms - Last Filed: 07/21/18 13:29> <Jaymie Leblanc - Last Filed: 07/21/18 13:37> - General Chief Complaint: Asthma Stated Complaint: ASTHMA Time Seen by Provider: 07/21/18 11:34 Past History <Chiara Jimenez - Last Filed: 07/21/18 13:19> <Castro Simms - Last Filed: 07/21/18 13:29> - Past Medical History Asthma: Yes (2 INTUBATIONS.) Cardiac Disorders: Yes (MITRAL VALVE PROLAPSE) COPD: No HTN: Yes - Surgical History Abdominal Surgery: No - Immunization History Immunization Up to Date: Yes - Suicide/Smoking/Psychosocial Hx Smoking Status: No Smoking History: Never smoked Have you smoked in the past 12 months: No Number of Cigarettes Smoked Daily: 0 Hx Alcohol Use: No Drug/Substance Use Hx: No Substance Use Type: None <Jaymie Leblanc - Last Filed: 07/21/18 13:37> - Past Medical History Allergies/Adverse Reactions: Allergies Allergy/AdvReac Type Severity Reaction Status Date / Time No Known Allergies Allergy Verified 07/21/18 11:06 Home Medications: Ambulatory Orders Albuterol 0.083% Nebulizer Denise [Ventolin 0.083% Nebulizer Soln -] 1 neb NEB QID PRN 05/04/17 Cetirizine HCl [Zyrtec -] 10 mg PO DAILY 05/04/17 Montelukast Na [Singulair -] 10 mg PO HS 05/04/17 Budesonide [Pulmicort 0.5 mg Nebulizer -] 1 neb NEB BID 04/10/18 Fluticasone Prop 0.05% Nasal [Flonase -] 1 - 2 spray NS BID 04/10/18 Ipratropium/Albuterol Sulfate [Combivent Respimat 20-100 Mcg] 2 puff IH BID LORazepam [Ativan] 0.5 mg PO DAILY 04/10/18 Lisinopril/Hydrochlorothiazide [Lisinopril-Hctz 10-12.5 mg Tab] 1 tab PO DAILY 04/10/18 Review of Systems - Review of Systems Able to Perform ROS?: Yes <Chiara Jimenez - Last Filed: 07/21/18 13:19> - Review of Systems Able to Perform ROS?: Yes Comments:: 07/21/18 13:31 GENERAL/CONSTITUTIONAL: No fever or chills. No weakness. HEAD, EYES, EARS, NOSE AND THROAT: No change in vision. No ear pain or discharge. No sore throat. CARDIOVASCULAR: +Chest pain and SOB RESPIRATORY: +cough, wheezing GASTROINTESTINAL: No nausea, vomiting, diarrhea or constipation. GENITOURINARY: No dysuria, frequency, or change in urination. MUSCULOSKELETAL: No joint or muscle swelling or pain. No neck or back pain. SKIN: No rash NEUROLOGIC: No headache, vertigo, loss of consciousness, or change in strength/ sensation. ENDOCRINE: No increased thirst. No abnormal weight change. HEMATOLOGIC/LYMPHATIC: No anemia, easy bleeding, or history of blood clots. ALLERGIC/IMMUNOLOGIC: No hives or skin allergy. <Castro Simms - Last Filed: 07/21/18 13:29> *Physical Exam - Vital Signs Last Vital Signs Temp Pulse Resp BP Pulse Ox 98.5 F 77 16 107/75 99 07/21/18 11:00 07/21/18 11:00 07/21/18 11:00 07/21/18 11:00 07/21/18 11:00 - Physical Exam Comments: 07/21/18 13:19 GENERAL: Awake, alert, and fully oriented, moderate respiratory distress. HEAD: No signs of trauma EYES: PERRLA, EOMI, sclera anicteric, conjunctiva clear ENT: +rhinorrhea, posterior pharynx clear. Auricles normal inspection, hearing grossly normal, oropharynx clear without exudates. Moist mucosa NECK: Normal ROM, supple, no lymphadenopathy, JVD, or masses LUNGS: +tight chest sounds, wheezing difficulty, conversational dyspnea, moderate respiratory distress. no crackles HEART: Regular rate and rhythm, normal S1 and S2, no murmurs, rubs or gallops ABDOMEN: Soft, nontender, No guarding, no rebound. No masses EXTREMITIES: no edema. Normal range of motion, No clubbing or cyanosis. No cords , erythema, or tenderness NEUROLOGICAL: Cranial nerves II through XII grossly intact. Normal speech, normal gait SKIN: No new rashes. Warm, Dry, normal turgor, no rashes or lesions noted. <Chiara Jimenez - Last Filed: 07/21/18 13:19> - Vital Signs Last Vital Signs Temp Pulse Resp BP Pulse Ox 98.5 F 77 16 107/75 99 07/21/18 11:00 07/21/18 11:00 07/21/18 11:00 07/21/18 11:00 07/21/18 11:00 <Castro Simms - Last Filed: 07/21/18 13:29> - Vital Signs Last Vital Signs Temp Pulse Resp BP Pulse Ox 98.5 F 77 16 107/75 99 07/21/18 11:00 07/21/18 11:00 07/21/18 11:00 07/21/18 11:00 07/21/18 11:00 <Jaymie Leblanc - Last Filed: 07/21/18 13:37> Moderate Sedation - Procedure Monitoring Vital Signs: Procedure Monitoring Vital Signs Temperature 98.5 F 07/21/18 11:00 Pulse Rate 77 07/21/18 11:00 Respiratory Rate 16 07/21/18 11:00 Blood Pressure 107/75 07/21/18 11:00 O2 Sat by Pulse Oximetry (%) 99 07/21/18 11:00 <Chiara Jimenez - Last Filed: 07/21/18 13:19> - Procedure Monitoring Vital Signs: Procedure Monitoring Vital Signs Temperature 98.5 F 07/21/18 11:00 Pulse Rate 77 07/21/18 11:00 Respiratory Rate 16 07/21/18 11:00 Blood Pressure 107/75 07/21/18 11:00 O2 Sat by Pulse Oximetry (%) 99 07/21/18 11:00 <Castro Simms - Last Filed: 07/21/18 13:29> - Procedure Monitoring Vital Signs: Procedure Monitoring Vital Signs Temperature 98.5 F 07/21/18 11:00 Pulse Rate 77 07/21/18 11:00 Respiratory Rate 16 07/21/18 11:00 Blood Pressure 107/75 07/21/18 11:00 O2 Sat by Pulse Oximetry (%) 99 07/21/18 11:00 <Jaymie Leblanc - Last Filed: 07/21/18 13:37> Heart Score/ECG Review - ECG Intrepretation Comment:: 07/21/18 12:07 sinus at 82, nl axis, nl interval, no acute st/t wave findings, incomplete RBBB , baseline artifact <Jaymie Leblanc - Last Filed: 07/21/18 13:37> ED Treatment Course - LABORATORY CBC & Chemistry Diagram: 07/21/18 12:06 07/21/18 12:06 - ADDITIONAL ORDERS Additional order review: Laboratory Results 07/21/18 07/21/18 07/21/18 12:06 12:06 12:06 VBG pH 7.44 H POC VBG pCO2 38.2 POC VBG pO2 58.8 H Mixed VBG HCO3 25.5 H Sodium 141 Potassium 3.9 Chloride 109 H Carbon Dioxide 24 Anion Gap 8 BUN 9 Creatinine 0.7 Creat Clearance w eGFR > 60 Random Glucose 92 Lactic Acid 1.6 Calcium 8.3 L Magnesium 2.2 Total Bilirubin 0.5 AST 27 ALT 47 Alkaline Phosphatase 94 Creatine Kinase 71 Troponin I < 0.02 B-Natriuretic Peptide 36.5 Total Protein 7.4 Albumin 4.1 Serum , Qual 07/21/18 07/21/18 12:06 12:05 VBG pH POC VBG pCO2 POC VBG pO2 Mixed VBG HCO3 Sodium Potassium Chloride Carbon Dioxide Anion Gap BUN Creatinine Creat Clearance w eGFR Random Glucose Lactic Acid Calcium Magnesium Total Bilirubin AST ALT Alkaline Phosphatase Creatine Kinase Troponin I B-Natriuretic Peptide Cancelled Total Protein Albumin Serum , Qual Negative 07/21/18 12:06 RBC 4.45 MCV 89.5 MCHC 34.6 RDW 13.2 MPV 8.1 Neutrophils % 53.9 D Lymphocytes % 24.9 D Monocytes % 7.4 Eosinophils % 11.9 H D Basophils % 1.9 D - Medications Given in the ED: ED Medications Discontinued Medications Generic Name Dose Route Start Last Admin Trade Name Frekevin PRN Reason Stop Dose Admin Albuterol/Ipratropium 1 amp 07/21/18 11:53 07/21/18 12:05 Duoneb - NEB 07/21/18 11:54 1 amp ONCE ONE Administration Albuterol/Ipratropium 1 amp 07/21/18 11:54 07/21/18 12:05 Duoneb - NEB 07/21/18 11:55 1 amp ONCE ONE Administration Albuterol/Ipratropium 1 amp 07/21/18 11:54 07/21/18 12:05 Duoneb - NEB 07/21/18 11:55 1 amp ONCE ONE Administration Magnesium Sulfate 1 gm 07/21/18 11:54 07/21/18 12:05 Magnesium Sulfate IVPB 07/21/18 11:55 1 gm ONCE ONE Administration Methylprednisolone Sodium Succinate 125 mg 07/21/18 11:53 07/21/18 12:05 Solu-Medrol - IVPB 07/21/18 11:54 125 mg ONCE ONE Administration Sodium Chloride 1,000 ml 07/21/18 11:53 07/21/18 12:05 Normal Saline - IV 07/21/18 11:54 1,000 ml ONCE ONE Administration <Chiara Jimenez - Last Filed: 07/21/18 13:19> - LABORATORY CBC & Chemistry Diagram: 07/21/18 12:06 07/21/18 12:06 - ADDITIONAL ORDERS Additional order review: Laboratory Results 07/21/18 07/21/18 07/21/18 12:06 12:06 12:06 VBG pH 7.44 H POC VBG pCO2 38.2 POC VBG pO2 58.8 H Mixed VBG HCO3 25.5 H Sodium 141 Potassium 3.9 Chloride 109 H Carbon Dioxide 24 Anion Gap 8 BUN 9 Creatinine 0.7 Creat Clearance w eGFR > 60 Random Glucose 92 Lactic Acid 1.6 Calcium 8.3 L Magnesium 2.2 Total Bilirubin 0.5 AST 27 ALT 47 Alkaline Phosphatase 94 Creatine Kinase 71 Troponin I < 0.02 B-Natriuretic Peptide 36.5 Total Protein 7.4 Albumin 4.1 Serum , Qual 07/21/18 07/21/18 12:06 12:05 VBG pH POC VBG pCO2 POC VBG pO2 Mixed VBG HCO3 Sodium Potassium Chloride Carbon Dioxide Anion Gap BUN Creatinine Creat Clearance w eGFR Random Glucose Lactic Acid Calcium Magnesium Total Bilirubin AST ALT Alkaline Phosphatase Creatine Kinase Troponin I B-Natriuretic Peptide Cancelled Total Protein Albumin Serum , Qual Negative 07/21/18 12:06 RBC 4.45 MCV 89.5 MCHC 34.6 RDW 13.2 MPV 8.1 Neutrophils % 53.9 D Lymphocytes % 24.9 D Monocytes % 7.4 Eosinophils % 11.9 H D Basophils % 1.9 D - Medications Given in the ED: ED Medications Discontinued Medications Generic Name Dose Route Start Last Admin Trade Name Freq PRN Reason Stop Dose Admin Albuterol/Ipratropium 1 amp 07/21/18 11:53 07/21/18 12:05 Duoneb - NEB 07/21/18 11:54 1 amp ONCE ONE Administration Albuterol/Ipratropium 1 amp 07/21/18 11:54 07/21/18 12:05 Duoneb - NEB 07/21/18 11:55 1 amp ONCE ONE Administration Albuterol/Ipratropium 1 amp 07/21/18 11:54 07/21/18 12:05 Duoneb - NEB 07/21/18 11:55 1 amp ONCE ONE Administration Magnesium Sulfate 1 gm 07/21/18 11:54 07/21/18 12:05 Magnesium Sulfate IVPB 07/21/18 11:55 1 gm ONCE ONE Administration Methylprednisolone Sodium Succinate 125 mg 07/21/18 11:53 07/21/18 12:05 Solu-Medrol - IVPB 07/21/18 11:54 125 mg ONCE ONE Administration Sodium Chloride 1,000 ml 07/21/18 11:53 07/21/18 12:05 Normal Saline - IV 07/21/18 11:54 1,000 ml ONCE ONE Administration <Castro Simms - Last Filed: 07/21/18 13:29> - LABORATORY CBC & Chemistry Diagram: 07/21/18 12:06 07/21/18 12:06 <Jaymie Leblanc - Last Filed: 07/21/18 13:37> Medical Decision Making - Critical Care Time Total Critical Care Time (minutes): 35 Critical Care Statement: The care of this patient involved high complexity decision making to prevent further life threatening deterioration of the patient 's condition and/or to evaluate & treat vital organ system(s) failure or risk of failure. - Medical Decision Making 07/21/18 12:03 a/p: 53yo female with hx of asthma - on steroids and inhalers x 5 days without improvement -also with sob, cp and L sided cp -Cards is [place] -concern for asthma exacerbation -also poss syncope a week ago -hx of RBBB -pt with conversational dyspnea, resp distress, wheezing diffusely -pt with cough- productive yellow sputum, chills, no fevers -will send flu, labs, cultures, cxr, ekg, trop -started on 3 duonebs, solumedrol, mag -hx of intubations in the past for asthma exacerbations 07/21/18 12:21 re-eval: still wheezing, feeling better less conversational dyspnea after 2 nebs 07/21/18 13:35 flu negative cxr negative will give azithromycin for asthma exacerbation discussed admission with SONY and the patient. <Jaymie Leblanc - Last Filed: 07/21/18 13:37> *DC/Admit/Observation/Transfer <Chiara Jimenez - Last Filed: 07/21/18 13:19> - Attestations Scribe Attestion: 07/21/18 13:34 Documentation prepared by Castro Simms, acting as medical supply technician for Jaymie Leblanc DO, MD. <Castro Simms - Last Filed: 07/21/18 13:29> - Discharge Dispostion Decision to Admit order: Yes - Attestations Physician Attestion: 07/21/18 13:37 I, Dr. Jaymie Leblanc DO, attest that this document has been prepared under my direction and personally reviewed by me in its entirety. I further attest, that it accurately reflects all work, treatment, procedures and medical decision -making performed by me. <Jaymie Leblanc - Last Filed: 07/21/18 13:37> Diagnosis at time of Disposition: Asthma exacerbation - Discharge Dispostion Condition at time of disposition: Guarded - Referrals Referrals: Ramiro Chery [Primary Care Provider] - - Patient Instructions - Post Discharge Activity
[2018-07-21] MEDS ORDERED: methylPREDNISolone NA SUCC 125 MG/2 ML VIAL ONE (11:45)
[2018-07-21] MEDS ORDERED: MAGNESIUM 1GM/D5W - 1 GM/100 ML IVPB IVPB ONE (11:45)
[2018-07-21] MEDS ORDERED: methylPREDNISolone NA SUCC 125 MG/2 ML VIAL IVPB ONE (11:53)
[2018-07-21] MEDS ORDERED: ALBUTEROL SO4 2.5/IPRATROPIUM 0.5 INH SOL 3 ML VIAL.NEB. NEB ONE ×4 (11:53→12:30)
[2018-07-21] MEDS ORDERED: SODIUM CHLORIDE 0.9% 1000 ML INFUS.BAG IV ONE (11:53)
[2018-07-21] MEDS ORDERED: MAGNESIUM SULF 50% (8.12 MEQ/2 ML-1 GM VIAL) IVPB ONE (11:54)
[2018-07-21 12:12] LABS: BASO % 1.9 % (0-2.0); EOS % 11.9 % (0-4.5); HEMATOCRIT 39.8 % (32.4-45.2); HEMOGLOBIN 13.8 GM/dL (10.7-15.3); LYMPH % 24.9 % (8-40); MCH 30.9 pg (25.7-33.7); MCHC 34.6 g/dl (32.0-36.0); MEAN CELL VOLUME 89.5 fl (80-96); MEAN PLT VOLUME 8.1 fl (7.5-11.1); MONO % 7.4 % (3.8-10.2); NEUT % 53.9 % (42.8-82.8); PLATELET COUNT 261 K/MM3 (134-434); RBC 4.45 M/mm3 (3.60-5.2); RDW 13.2 % (11.6-15.6); VENOUS PC02 38.2 mmHg (38-52); VENOUS PH 7.44 (7.32-7.42); VENOUS PO2 58.8 mmHg (28-48); WHITE BLOOD COUNT 9.5 K/mm3 (4.0-10.0)
[2018-07-21 12:39] LABS: ALBUMIN 4.1 g/dl (3.4-5.0); ALK PHOS 94 U/L (45-117); ANION GAP 8 MMOL/L (8-16); BILIRUBIN,TOTAL 0.5 mg/dL (0.2-1); BLOOD UREA NITROGEN 9 mg/dL (7-18); CALCIUM 8.3 mg/dL (8.5-10.1); CHLORIDE 109 mmol/L (98-107); CO2 24 mmol/L (21-32); CREATININE 0.7 mg/dL (0.55-1.3); GLUCOSE,RANDOM 92 mg/dL (74-106); MAGNESIUM 2.2 mg/dL (1.8-2.4); N-TERMINAL BNP 36.5 pg/ml (5-125); POTASSIUM 3.9 mmol/L (3.5-5.1); SGOT/AST 27 U/L (15-37); SGPT/ALT 47 U/L (13-61); SODIUM 141 mmol/L (136-145); TOT PROT 7.4 g/dl (6.4-8.2)
[2018-07-21] MEDS ORDERED: AZITHROMYCIN IVPB 500 MG in DEXTROSE 5%-WATER - 250 ML IVPB ONE (13:24)
[2018-07-21] MEDS ORDERED: AZITHROMYCIN IVPB 500 MG/250 ML BAG IVPB ONE (13:35)
[2018-07-21] MEDS ORDERED: ALBUTEROL SO4 0.083% IH SOL 2.5 MG/3 ML VIAL.NEB. NEB ONE ×2 (13:41→13:43)
[2018-07-21] MEDS ORDERED: ONDANSETRON 4 MG/2 ML VIAL ONE ×2 (14:00→14:35)
[2018-07-21] MEDS ORDERED: FAMOTIDINE 20 MG/50 ML IVPB 20 MG/50 ML MG IVPB ONE ×2 (14:08→14:35)
[2018-07-21] MEDS ORDERED: ONDANSETRON 4 MG/2 ML VIAL IVPUSH ONE ×2 (14:08→14:32)
[2018-07-21] MEDS ORDERED: PANTOPRAZOLE 40 MG TABLET (FP) PO ONE (14:14)
[2018-07-21] MEDS ORDERED: PANTOPRAZOLE 40 MG TABLET (FP) ONE (14:35)
[2018-07-21] MEDS ORDERED: LORazepam 0.5 MG TABLET PO PRN (17:35)
--- NOTE | 2018-07-21 17:35 | HP ---
CHIEF COMPLAINT: PCP: HISTORY OF PRESENT ILLNESS: Patient is a 53 year old female, with a significant PMH of asthma (with two 2 intubations), right bundle branch block, mitral valve prolapse and HTN. She presents to the Ed with left sided chest pain that began 1 week ago. Chest pain was shap and located to the left chest that radiates to the left side of her back. The patient also reports cough with yellow phlegm, and respiratory distress with relief no relief with Prednisone at home that was prescribed by her PCP. patient received solumedrol 125mg in the ED, nebulizer treatments, magnesium and oxygen therapy. She reports to be feeling better and able to ambulate without shortness of breath. AT 1800 patient asked to go home. She has capacity to make her own medical decisions and is willing to come back if her symptoms return. I explained to patient that she is not discharged, as she still needs to have her asthma exacerbation closely monitored, especially with her history of intubations. She does not want to stay and asking to leave AMA. She signed paperwork. I will call in prednisone to her pharmacy and toradol for her left chest pain. She wants to see her own PCP on discharged. ER course was notable for: (1) Wheezing, shortness of breath (2) solumedrol 125mg (3) Recent Travel: PAST MEDICAL HISTORY: PAST SURGICAL HISTORY: Social History: Smoking: denies Alcohol: none Drugs: none Family History: Allergies No Known Allergies Allergy (Verified 07/21/18 11:06) HOME MEDICATIONS: Home Medications Medication Instructions Recorded Albuterol 0.083% Nebulizer Denise 1 neb NEB QID PRN 05/04/17 [Ventolin 0.083% Nebulizer Soln -] Cetirizine HCl [Zyrtec -] 10 mg PO DAILY 05/04/17 Montelukast Na [Singulair -] 10 mg PO HS 05/04/17 Budesonide [Pulmicort 0.5 mg 1 neb NEB BID 04/10/18 Nebulizer -] Fluticasone Prop 0.05% Nasal 1 - 2 spray NS BID 04/10/18 [Flonase -] Ipratropium/Albuterol Sulfate 2 puff IH BID 04/10/18 [Combivent Respimat 20-100 Mcg] LORazepam [Ativan] 0.5 mg PO DAILY 04/10/18 Lisinopril/Hydrochlorothiazide 1 tab PO DAILY 04/10/18 [Lisinopril-Hctz 10-12.5 mg Tab] PHYSICAL EXAMINATION Vital Signs - 24 hr 07/21/18 11:00 Temperature 98.5 F Pulse Rate 77 Respiratory 16 Rate Blood Pressure 107/75 O2 Sat by Pulse 99 Oximetry (%) GENERAL: Awake, alert, and fully oriented, in no acute distress. HEAD: Normal with no signs of trauma. EYES: Pupils equal, round and reactive to light, extraocular movements intact, sclera anicteric, conjunctiva clear. No lid lag. EARS, NOSE, THROAT: Ears normal, nares patent, oropharynx clear without exudates. Moist mucous membranes. NECK: Normal range of motion, supple without lymphadenopathy, JVD, or masses. LUNGS: Breath sounds equal, mild wheezing auscultated on bilateral lungs HEART: Regular rate and rhythm, ABDOMEN: Soft, nontender, not distended, normoactive bowel sounds, no guarding, no rebound, no masses. No hepatomegaly or splenomegaly. Laboratory Results - last 24 hr 07/21/18 07/21/18 07/21/18 11:58 12:05 12:06 WBC 9.5 RBC 4.45 Hgb 13.8 Hct 39.8 MCV 89.5 MCH 30.9 MCHC 34.6 RDW 13.2 Plt Count 261 MPV 8.1 Absolute Neuts (auto) 5.1 Neutrophils % 53.9 D Lymphocytes % 24.9 D Monocytes % 7.4 Eosinophils % 11.9 H D Basophils % 1.9 D Nucleated RBC % 0 VBG pH POC VBG pCO2 POC VBG pO2 Mixed VBG HCO3 Sodium Potassium Chloride Carbon Dioxide Anion Gap BUN Creatinine Creat Clearance w eGFR Random Glucose Lactic Acid Calcium Magnesium Total Bilirubin AST ALT Alkaline Phosphatase Creatine Kinase Troponin I B-Natriuretic Peptide Cancelled Total Protein Albumin Serum , Qual Influenza A (Rapid) Negative Influenza B (Rapid) Negative 07/21/18 07/21/18 07/21/18 12:06 12:06 12:06 WBC RBC Hgb Hct MCV MCH MCHC RDW Plt Count MPV Absolute Neuts (auto) Neutrophils % Lymphocytes % Monocytes % Eosinophils % Basophils % Nucleated RBC % VBG pH 7.44 H POC VBG pCO2 38.2 POC VBG pO2 58.8 H Mixed VBG HCO3 25.5 H Sodium 141 Potassium 3.9 Chloride 109 H Carbon Dioxide 24 Anion Gap 8 BUN 9 Creatinine 0.7 Creat Clearance w eGFR > 60 Random Glucose 92 Lactic Acid Calcium 8.3 L Magnesium 2.2 Total Bilirubin 0.5 AST 27 ALT 47 Alkaline Phosphatase 94 Creatine Kinase 71 Troponin I < 0.02 B-Natriuretic Peptide 36.5 Total Protein 7.4 Albumin 4.1 Serum , Qual Negative Influenza A (Rapid) Influenza B (Rapid) 07/21/18 12:06 WBC RBC Hgb Hct MCV MCH MCHC RDW Plt Count MPV Absolute Neuts (auto) Neutrophils % Lymphocytes % Monocytes % Eosinophils % Basophils % Nucleated RBC % VBG pH POC VBG pCO2 POC VBG pO2 Mixed VBG HCO3 Sodium Potassium Chloride Carbon Dioxide Anion Gap BUN Creatinine Creat Clearance w eGFR Random Glucose Lactic Acid 1.6 Calcium Magnesium Total Bilirubin AST ALT Alkaline Phosphatase Creatine Kinase Troponin I B-Natriuretic Peptide Total Protein Albumin Serum , Qual Influenza A (Rapid) Influenza B (Rapid) ASSESSMENT/PLAN: Patient has capacity to make her own medical decisions. She came to the ED with shortness of breath and left sided chest pain. She was treated in the ED with oxygen therapy, antibiotics, nebulizers, magnesium and high dose steriods. She feels better and wants to go home against medical advice. She is risking sudden and is willing to take risk. POC discussed with her, asked her to stay at least 24 hours so that we can monitor her airway, she refused. She signed paperwork in my presence. Will call in a prednisone taper to her pharmacy as well as pain meds (toradol). Visit type - Emergency Visit Emergency Visit: Yes ED Registration Date: 07/21/18 Care time: The patient presented to the Emergency Department on the above date and was hospitalized for further evaluation of their emergent condition. - New Patient This patient is new to me today: Yes Date on this admission: 07/21/18 - Critical Care Critical Care patient: No
[2018-07-21] MEDS ORDERED: methylPREDNISolone NA SUCC 40 MG/1 ML VIAL IVPUSH SCH (17:45)
[2018-07-21] MEDS ORDERED: BUDESONIDE 0.5 MG/2 ML INH SUSP VIAL NEB SCH (20:00)
--- NOTE | 2018-07-21 20:23 | DS ---
Physical Exam: SUBJECTIVE: Patient seen and examined OBJECTIVE: Vital Signs Period Temp Pulse Resp BP Sys/Lynne Pulse Ox Last 24 Hr 98.5 F 77 16 107/75 99 PHYSICAL EXAM GENERAL: Awake, alert, and fully oriented, in no acute distress. HEAD: Normal with no signs of trauma. EYES: Pupils equal, round and reactive to light, extraocular movements intact, sclera anicteric, conjunctiva clear. No lid lag. EARS, NOSE, THROAT: Ears normal, nares patent, oropharynx clear without exudates. Moist mucous membranes. NECK: Normal range of motion, supple without lymphadenopathy, JVD, or masses. LUNGS: Breath sounds equal, mild wheezing auscultated on bilateral lungs HEART: Regular rate and rhythm, ABDOMEN: Soft, nontender, not distended, normoactive bowel sounds, no guarding, no rebound, no masses. No hepatomegaly or splenomegaly. LABS Laboratory Results - last 24 hr 07/21/18 07/21/18 07/21/18 11:58 12:05 12:06 WBC 9.5 RBC 4.45 Hgb 13.8 Hct 39.8 MCV 89.5 MCH 30.9 MCHC 34.6 RDW 13.2 Plt Count 261 MPV 8.1 Absolute Neuts (auto) 5.1 Neutrophils % 53.9 D Lymphocytes % 24.9 D Monocytes % 7.4 Eosinophils % 11.9 H D Basophils % 1.9 D Nucleated RBC % 0 VBG pH POC VBG pCO2 POC VBG pO2 Mixed VBG HCO3 Sodium Potassium Chloride Carbon Dioxide Anion Gap BUN Creatinine Creat Clearance w eGFR Random Glucose Lactic Acid Calcium Magnesium Total Bilirubin AST ALT Alkaline Phosphatase Creatine Kinase Troponin I B-Natriuretic Peptide Cancelled Total Protein Albumin Serum , Qual Influenza A (Rapid) Negative Influenza B (Rapid) Negative 07/21/18 07/21/18 07/21/18 12:06 12:06 12:06 WBC RBC Hgb Hct MCV MCH MCHC RDW Plt Count MPV Absolute Neuts (auto) Neutrophils % Lymphocytes % Monocytes % Eosinophils % Basophils % Nucleated RBC % VBG pH 7.44 H POC VBG pCO2 38.2 POC VBG pO2 58.8 H Mixed VBG HCO3 25.5 H Sodium 141 Potassium 3.9 Chloride 109 H Carbon Dioxide 24 Anion Gap 8 BUN 9 Creatinine 0.7 Creat Clearance w eGFR > 60 Random Glucose 92 Lactic Acid Calcium 8.3 L Magnesium 2.2 Total Bilirubin 0.5 AST 27 ALT 47 Alkaline Phosphatase 94 Creatine Kinase 71 Troponin I < 0.02 B-Natriuretic Peptide 36.5 Total Protein 7.4 Albumin 4.1 Serum , Qual Negative Influenza A (Rapid) Influenza B (Rapid) 07/21/18 12:06 WBC RBC Hgb Hct MCV MCH MCHC RDW Plt Count MPV Absolute Neuts (auto) Neutrophils % Lymphocytes % Monocytes % Eosinophils % Basophils % Nucleated RBC % VBG pH POC VBG pCO2 POC VBG pO2 Mixed VBG HCO3 Sodium Potassium Chloride Carbon Dioxide Anion Gap BUN Creatinine Creat Clearance w eGFR Random Glucose Lactic Acid 1.6 Calcium Magnesium Total Bilirubin AST ALT Alkaline Phosphatase Creatine Kinase Troponin I B-Natriuretic Peptide Total Protein Albumin Serum , Qual Influenza A (Rapid) Influenza B (Rapid) HOSPITAL COURSE: Date of Admission:07/21/18 Date of Discharge: 07/21/18 Patient has capacity to make her own medical decisions. She came to the ED with shortness of breath and left sided chest pain. She was treated in the ED with oxygen therapy, antibiotics, nebulizers, magnesium and high dose steriods. She feels better and wants to go home against medical advice. She is risking sudden and is willing to take risk. POC discussed with her, asked her to stay at least 24 hours so that we can monitor her airway, she refused. She signed paperwork in my presence. Will call in a prednisone taper to her pharmacy as well as pain meds (toradol). Minutes to complete discharge: 60 Discharge Summary Reason For Visit: EXACERBATION OF ASTHMA Current Active Problems Asthma exacerbation (Acute) Condition: Guarded - Instructions Referrals: Ramiro Chery [Primary Care Provider] - Disposition: AGAINST MEDICAL ADVICE - Home Medications Comprehensive Discharge Medication List: Ambulatory Orders Albuterol 0.083% Nebulizer Denise [Ventolin 0.083% Nebulizer Soln -] 1 neb NEB QID PRN 05/04/17 Cetirizine HCl [Zyrtec -] 10 mg PO DAILY 05/04/17 Montelukast Na [Singulair -] 10 mg PO HS 05/04/17 Budesonide [Pulmicort 0.5 mg Nebulizer -] 1 neb NEB BID 04/10/18 Fluticasone Prop 0.05% Nasal [Flonase -] 1 - 2 spray NS BID 04/10/18 Ipratropium/Albuterol Sulfate [Combivent Respimat 20-100 Mcg] 2 puff IH BID LORazepam [Ativan] 0.5 mg PO DAILY 04/10/18 Lisinopril/Hydrochlorothiazide [Lisinopril-Hctz 10-12.5 mg Tab] 1 tab PO DAILY 04/10/18 Ketorolac Tromethamine [Toradol] 10 mg PO Q6H #10 tablet 07/21/18 Pantoprazole Sodium [Protonix] 40 mg PO DAILY #5 tablet.dr 07/21/18 Prednisone 60 mg PO DAILY #22 tab.ds.pk 07/21/18 This patient is new to me today: Yes Date on this admission: 07/21/18 Emergency Visit: Yes ED Registration Date: 07/21/18 Care time: The patient presented to the Emergency Department on the above date and was hospitalized for further evaluation of their emergent condition. Critical Care patient: No - Discharge Referral Referred to [facility] Med [facility] No
[2018-07-21] MEDS ORDERED: MONTELUKAST NA 10 MG TABLET PO SCH (22:00)
[2018-07-22] MEDS ORDERED: LISINOPRIL 10 MG TABLET (FP) PO SCH (10:00)
[2018-07-22] MEDS ORDERED: LORATADINE 10 MG TABLET PO SCH (10:00)
[2018-07-22] MEDS ORDERED: PATIENT'S OWN MEDICATION (NON-FORMULARY) (Lisinopril/Hydrochlorothiazide [Lisinopril-Hctz PO SCH (10:00)
[2018-07-22] MEDS ORDERED: HYDROCHLOROTHIAZIDE 12.5 MG CAPSULE (FP) PO SCH (10:00)
--- NOTE | 2018-07-22 12:20 | EKG ---
Test Reason : Blood Pressure : / mmHG Vent. Rate : 082 BPM Atrial Rate : 082 BPM P-R Int : 140 ms QRS Dur : 094 ms QT Int : 382 ms P-R-T Axes : 066 067 055 degrees QTc Int : 446 ms NORMAL SINUS RHYTHM POSSIBLE LEFT ATRIAL ENLARGEMENT BORDERLINE ECG WHEN COMPARED WITH ECG OF 10-APR-2018 14:46, NO SIGNIFICANT CHANGE WAS FOUND Confirmed by ANDRE ALVARADO MD ([id number]) on 07/22/2018 12:19:57 PM Referred By: Confirmed By:ANDRE ALVARADO MD
== END 2018-07-21 18:54 | disposition left against medical advice (07) | DRG 141 ==
LOC: JER 10:56 → JERBED 13:37
PROVIDERS: ADMIT Internal Medicine; ATTEND Nurse Practitioner Family
DX: J45.901 Unspecified asthma with (acute) exacerbation (principal); R07.9 Chest pain, unspecified; I10 Essential (primary) hypertension; I45.10 Unspecified right bundle-branch block; I34.1 Nonrheumatic mitral (valve) prolapse
CPT/HCPCS: 36415; 71045-TC-FY; 80053; 82550; 82803; 83605; 83735; 83880; 84484; 84703; 85025; 87040; 87804; 93005; 93010; 99282-25; J7030

== ENCOUNTER 2018-07-24 05:41 | Emergency (ER) | payer OTHER ==
[2018-07-24 05:49] VITALS: BP 138/96; PULSE 103; TEMP 98.1; BMI 26.1
[2018-07-24] MEDS ORDERED: FAMOTIDINE 20 MG/50 ML IVPB 20 MG/50 ML MG IVPB ONE ×2 (06:00→07:38)
[2018-07-24] MEDS ORDERED: SODIUM CHLORIDE 1,000 ML IV STA (06:00)
[2018-07-24] MEDS ORDERED: ONDANSETRON 4 MG/2 ML VIAL IVPUSH ONE (06:00)
[2018-07-24] MEDS ORDERED: ACETAMINOPHEN 1000 MG/100 ML VIAL (NON FORMULARY) IVPB ONE (06:00)
--- NOTE | 2018-07-24 06:06 | PDOC ---
History of Present Illness - History of Present Illness Initial Comments: 07/24/18 06:01 53 yo F with h/o HTN, MVP, RBBB, asthma requiring ICU stay/intubation, who p/w abdominal pain. Patient reports acute onset of diffuse, crampy, unremitting, abodominal pain, with no identifiable triggers x 7 hours. Also endorses multiple episodes of watery stools, and non bilious, non bloody emesis. + Decreased appetite. Denies recent travel, hiking, camping, or change in diet. Recently left AMA following asthma exacerbation/admission to [facility] (07/21/18). Reports taking Prednisone and Azithromycin this AM for wheezing. Patient denies JORGENSEN, vision change, Palpitations, orthopnea, PND, F/C, CP, SOB, urinary complaints, BPR, hematuria, constipation, lightheadedness, weakness, sensory changes. PMHx: as noted above. Denies h/o abdominal surgery. ROS: as noted SHx: Denies Etoh, IVDA, tobacco use Allergies: NKDA <Handy Fu - Last Filed: 07/24/18 06:55> <Sheri Blake - Last Filed: 07/24/18 23:11> - General Chief Complaint: Asthma Stated Complaint: ASTHMA Time Seen by Provider: 07/24/18 05:51 Past History - Past Medical History Asthma: Yes (2 INTUBATIONS.) Cardiac Disorders: Yes (MITRAL VALVE PROLAPSE) COPD: No HTN: Yes - Surgical History Abdominal Surgery: No - Immunization History Immunization Up to Date: Yes - Suicide/Smoking/Psychosocial Hx Smoking Status: No Smoking History: Never smoked Have you smoked in the past 12 months: No Number of Cigarettes Smoked Daily: 0 Information on smoking cessation initiated: No Hx Alcohol Use: No Drug/Substance Use Hx: No Substance Use Type: None <Handy Fu - Last Filed: 07/24/18 06:55> <Sheri Blake - Last Filed: 07/24/18 23:11> - Past Medical History Allergies/Adverse Reactions: Allergies Allergy/AdvReac Type Severity Reaction Status Date / Time No Known Allergies Allergy Verified 07/24/18 05:47 Home Medications: Ambulatory Orders Albuterol 0.083% Nebulizer Denise [Ventolin 0.083% Nebulizer Soln -] 1 neb NEB QID PRN 10/13/17 Cetirizine HCl [Zyrtec -] 10 mg PO DAILY 05/04/17 Montelukast Na [Singulair -] 10 mg PO HS 05/04/17 Budesonide [Pulmicort 0.5 mg Nebulizer -] 1 neb NEB BID 04/10/18 Fluticasone Prop 0.05% Nasal [Flonase -] 1 - 2 spray NS BID 04/10/18 Ipratropium/Albuterol Sulfate [Combivent Respimat 20-100 Mcg] 2 puff IH BID LORazepam [Ativan] 0.5 mg PO DAILY 04/10/18 Lisinopril/Hydrochlorothiazide [Lisinopril-Hctz 10-12.5 mg Tab] 1 tab PO DAILY 04/10/18 Ketorolac Tromethamine [Toradol] 10 mg PO Q6H #10 tablet 07/21/18 Pantoprazole Sodium [Protonix] 40 mg PO DAILY #5 tablet.dr 07/21/18 Prednisone 60 mg PO DAILY #22 tab.ds.pk 07/21/18 Famotidine [Pepcid -] 20 mg PO DAILY #7 tablet 07/24/18 Mag Hydrox/Al Hydrox/Simeth [Mylanta *Suspension*] 30 ml PO Q6H #12 cup Ondansetron [Zofran -] 4 mg PO TID #21 tablet 07/24/18 Review of Systems - Review of Systems Comments:: 07/24/18 06:10 GENERAL/CONSTITUTIONAL: No fever or chills. No weakness. HEAD, EYES, EARS, NOSE AND THROAT: No change in vision. No ear pain or discharge. No sore throat. CARDIOVASCULAR: No chest pain or shortness of breath RESPIRATORY: No cough, wheezing, or hemoptysis. GASTROINTESTINAL: + Abdominal pain, nausea, vomiting, diarrhea. No constipation. GENITOURINARY: No dysuria, frequency, or change in urination. MUSCULOSKELETAL: No joint or muscle swelling or pain. No neck or back pain. SKIN: No rash NEUROLOGIC: No headache, vertigo, loss of consciousness, or change in strength/ sensation. ENDOCRINE: No increased thirst. No abnormal weight change HEMATOLOGIC/LYMPHATIC: No anemia, easy bleeding, or history of blood clots. ALLERGIC/IMMUNOLOGIC: No hives or skin allergy. <Nathen Fuson - Last Filed: 07/24/18 06:55> *Physical Exam - Vital Signs Last Vital Signs Temp Pulse Resp BP Pulse Ox 98.1 F 103 H 18 138/96 98 07/24/18 05:47 07/24/18 05:47 07/24/18 05:47 07/24/18 05:47 07/24/18 05:47 - Physical Exam Comments: 07/24/18 06:12 GENERAL: Awake, alert, and fully oriented, in no acute distress HEAD: No signs of trauma, normocephalic, atraumatic EYES: PERRLA, EOMI, sclera anicteric, conjunctiva clear ENT: Hearing grossly normal, nares patent, oropharynx clear without exudates. Moist mucosa NECK: Normal ROM, supple, no lymphadenopathy, JVD, or masses LUNGS: No distress, speaks full sentences, clear to auscultation bilaterally HEART: Regular rate and rhythm, normal S1 and S2, no murmurs, rubs or gallops, peripheral pulses normal and equal bilaterally. ABDOMEN: + Diffuse ttp. Soft, nontender, NDS, normoactive bowel sounds. No guarding, no rebound. No masses. Neg CVA ttp. EXTREMITIES : Normal inspection, Normal range of motion, no edema. No clubbing or cyanosis. SKIN: Warm, Dry, normal turgor, no rashes or lesions noted <Handy Fu - Last Filed: 07/24/18 06:55> - Vital Signs Last Vital Signs Temp Pulse Resp BP Pulse Ox 98.1 F 103 H 18 138/96 98 07/24/18 05:47 07/24/18 05:47 07/24/18 05:47 07/24/18 05:47 07/24/18 05:47 <Sheri Blake - Last Filed: 07/24/18 23:11> Moderate Sedation - Procedure Monitoring Vital Signs: Procedure Monitoring Vital Signs Temperature 98.1 F 07/24/18 05:47 Pulse Rate 103 H 07/24/18 05:47 Respiratory Rate 18 07/24/18 05:47 Blood Pressure 138/96 07/24/18 05:47 O2 Sat by Pulse Oximetry (%) 98 07/24/18 05:47 <Handy Fu - Last Filed: 07/24/18 06:55> - Procedure Monitoring Vital Signs: Procedure Monitoring Vital Signs Temperature 98.1 F 07/24/18 05:47 Pulse Rate 103 H 07/24/18 05:47 Respiratory Rate 18 07/24/18 05:47 Blood Pressure 138/96 07/24/18 05:47 O2 Sat by Pulse Oximetry (%) 98 07/24/18 05:47 <BlakeSheri Blakelashaetia - Last Filed: 07/24/18 23:11> ED Treatment Course - LABORATORY CBC & Chemistry Diagram: 07/24/18 06:30 07/24/18 06:30 <Handy Fu - Last Filed: 07/24/18 06:55> - LABORATORY CBC & Chemistry Diagram: 07/24/18 06:30 07/24/18 06:30 - ADDITIONAL ORDERS Additional order review: 07/24/18 06:30 RBC 5.07 MCV 91.2 MCHC 32.7 RDW 13.0 MPV 8.1 Neutrophils % 87.1 H D Lymphocytes % 5.6 L D Monocytes % 6.8 Eosinophils % 0.2 D Basophils % 0.3 - RADIOLOGY Radiology Studies Ordered: Category Date Time Status ABDOMEN & PELVIS CT WITH CONTR [CT] Stat CT Scan 07/24/18 06:48 Completed - Medications Given in the ED: ED Medications Discontinued Medications Generic Name Dose Route Start Last Admin Trade Name Cleve PRN Reason Stop Dose Admin Acetaminophen 1,000 mg 07/24/18 06:00 07/24/18 06:30 Ofirmev Injection - IVPB 07/24/18 06:01 1,000 mg ONCE ONE Administration Famotidine/Sodium Chloride 20 mg in 50 mls @ 100 mls/hr 07/24/18 06:00 07:30 Pepcid 20 Mg Premixed Ivpb - IVPB 07/24/18 06:29 100 mls/hr ONCE ONE Administration Sodium Chloride 1,000 mls @ 1,000 mls/hr 07/24/18 06:00 07/24/18 06:30 Normal Saline - IV 07/24/18 06:59 1,000 mls/hr ASDIR STA Administration Ketorolac Tromethamine 30 mg 07/24/18 06:55 07/24/18 07:25 Toradol Injection - IVPUSH 07/24/18 06:56 30 mg ONCE ONE Administration Metoclopramide HCl 10 mg 07/24/18 06:55 07/24/18 07:45 Reglan Injection - IVPUSH 07/24/18 06:56 10 mg ONCE ONE Administration Ondansetron HCl 4 mg 07/24/18 06:00 07/24/18 06:25 Zofran Injection IVPUSH 07/24/18 06:01 4 mg ONCE ONE Administration <Sheri Blake - Last Filed: 07/24/18 23:11> Medical Decision Making - Medical Decision Making 07/24/18 06:06 53 yo F with h/o HTN, MVP, RBBB, asthma requiring ICU stay/intubation, who p/w diffuse, crampy, abdominal pain, and vomiting x 7 hours. HR 103, vitals otherwise wnl, AF, A&Ox3. + Diffuse abdominal ttp. Will consider gastroenteritis , colitis, esophagitis, biliary dz, pancreatitis, appendicitis. Low suspicion pyelonephritis, AAA, Ao dissection, ovarian pathology. ED Course: CBC, CMP, LIPASE Famotidine, Zofran, Tylenol, NS 07/24/18 06:09 EKG: NSR with Incomplete RBBB. Absent PRISCA, STD, TWI. Nml interval duration and axis. Nml R wave progression. Absent Q waves. Unchanged from 07-21-18. 07/24/18 06:[address] AP, labs. Vomiting controlled. Reglan, Toradol Pt. Endorsed to day team. <Handy Fu - Last Filed: 07/24/18 06:55> *DC/Admit/Observation/Transfer <Handy Fu - Last Filed: 07/24/18 06:55> <Sheri Blake - Last Filed: 07/24/18 23:11> Diagnosis at time of Disposition: Abdominal pain, generalized Nausea & vomiting Qualifiers: Vomiting type: unspecified Vomiting Intractability: unspecified Qualified Code( s): R11.2 - Nausea with vomiting, unspecified - Discharge Dispostion Disposition: HOME Condition at time of disposition: Stable - Prescriptions Prescriptions: Famotidine [Pepcid -] 20 mg PO DAILY #7 tablet Mag Hydrox/Al Hydrox/Simeth [Mylanta *Suspension*] 30 ml PO Q6H #12 cup Ondansetron [Zofran -] 4 mg PO TID #21 tablet - Referrals Referrals: Michel Almonte MD [Staff Physician] - Ramiro Chery [Primary Care Provider] - - Patient Instructions Printed Discharge Instructions: DI for Abdominal Pain-Adult, Nausea and Vomiting-Adult Additional Instructions: Please return to the ER if you experience concerning or worsening symptoms including worsening difficulty breathing, weakness, or chest pain, abdominal pain, fevers, vomiting. Your lab results and CT scan were normal here in the ER. Please call to schedule a follow up appointment with your primary care provider and our GI specialist within 2-3 days to discuss your ER visit and further management of your symptoms. - Post Discharge Activity
--- NOTE | 2018-07-24 06:33 | PDOC ---
Attending Attestation - Resident Resident Name: TankNathenHandy - ED Attending Attestation I have performed the following: I have examined & evaluated the patient, The case was reviewed & discussed with the resident, I agree w/resident's findings & plan - HPI HPI: 07/24/18 06:49 53YOF, with a significant past medical history of HTN, MVP, RBBB, asthma ( requiring ICU stay/intubation), who presents to the emergency department with, abdominal pain, n/v/d x 7 hours. She describes her abdominal pain as diffusely crampy with associated nausea, vomiting, and nonbloody watery stools. The patient was recently seen in the ED for asthma exacerbation at which time she signed out AMA. admits to being on steroid taper, missed taking with prilosec today with dose also notes +filet tasha, which was old and brought over from a friend. She denies any abnormal food intake. She denies recent fevers, chills, headache or dizziness. She denies recent dysuria, frequency, urgency or hematuria. She denies recent chest pain or shortness of breath. Allergies: NKDA Primary Care Physician: Dr. Chery - Physicial Exam PE: 07/24/18 06:51 Shaking, malaised appearing, PERRL, EOMI, MMM, nl conjunctiva, anicteric; neck supple. +scant wheezing, RRR, abdomen soft +periumbilical tenderness, no rebound or guarding, no CVAT. MAHER x4. No peripheral edema. normal color for ethnicity, WWP. - Medical Decision Making 07/24/18 06:53 DDx abdominal pain: Renal colic, biliary colic, metabolic/electrolyte derangements. GERD, PUD, esophageal spasm, pancreatitis, hepatitis, Gastroenteritis, acute colitis, medication side effect, hernia, appendicitis, diverticulitis See HPI for details Vital signs reviewed, +mild tachycardia likely from volume loss/stress and pain Prior notes reviewed, including admissions, discharges and consultations. laboratory results and imaging reviewed, basic labs and lytes wnl, notable for_ . ED course: IVF, hydration, antiemetics, analgesia. reeval, CT a/p to eval for colitis/infection, with significant sx. Dispo: s/o pending imaging and labs, reeval. 07/24/18 06:57
[2018-07-24 06:47] LABS: BASO % 0.3 % (0-2.0); EOS % 0.2 % (0-4.5); HEMATOCRIT 46.3 % (32.4-45.2); HEMOGLOBIN 15.1 GM/dL (10.7-15.3); LYMPH % 5.6 % (8-40); MCH 29.8 pg (25.7-33.7); MCHC 32.7 g/dl (32.0-36.0); MEAN CELL VOLUME 91.2 fl (80-96); MEAN PLT VOLUME 8.1 fl (7.5-11.1); MONO % 6.8 % (3.8-10.2); NEUT % 87.1 % (42.8-82.8); PLATELET COUNT 288 K/MM3 (134-434); RBC 5.07 M/mm3 (3.60-5.2); WHITE BLOOD COUNT 16.9 K/mm3 (4.0-10.0)
[2018-07-24] MEDS ORDERED: METOCLOPRAMIDE HCL INJECTION 10 MG/2 ML VIAL IVPUSH ONE (06:55)
[2018-07-24] MEDS ORDERED: KETOROLAC TROMETHAMINE 30 MG/1 ML VIAL IVPUSH ONE (06:55)
[2018-07-24 07:22] LABS: ALBUMIN 4.7 g/dl (3.4-5.0); ALK PHOS 110 U/L (45-117); ANION GAP 9 MMOL/L (8-16); BILIRUBIN,TOTAL 0.6 mg/dL (0.2-1); BLOOD UREA NITROGEN 26 mg/dL (7-18); CALCIUM 8.9 mg/dL (8.5-10.1); CHLORIDE 105 mmol/L (98-107); CO2 27 mmol/L (21-32); CREATININE 0.9 mg/dL (0.55-1.3); GLUCOSE,RANDOM 110 mg/dL (74-106); POTASSIUM 4.5 mmol/L (3.5-5.1); SGOT/AST 35 U/L (15-37); SGPT/ALT 62 U/L (13-61); SODIUM 141 mmol/L (136-145); TOT PROT 8.5 g/dl (6.4-8.2)
[2018-07-24] MEDS ORDERED: METOCLOPRAMIDE HCL INJECTION 10 MG/2 ML VIAL ONE (07:37)
[2018-07-24] MEDS ORDERED: KETOROLAC TROMETHAMINE 30 MG/1 ML VIAL ONE (07:37)
--- NOTE | 2018-07-24 09:50 | PDOC ---
*Physical Exam - Vital Signs Last Vital Signs Temp Pulse Resp BP Pulse Ox 98.1 F 103 H 18 138/96 98 07/24/18 05:47 07/24/18 05:47 07/24/18 05:47 07/24/18 05:47 07/24/18 05:47 - Physical Exam Comments: 07/24/18 10:24 General Appearance: Nourished. No Apparent Distress HEENT: No Pharyngeal Erythema, Tonsillar Exudate, Tonsillar Erythema Neck: No Cervical Lymphadenopathy Respiratory/Chest: Lungs Clear, Normal Breath Sounds. No Crackles, Rales, Rhonchi, Wheezing Cardiovascular: Regular Rhythm, Regular Rate. No Murmur, Gallops, Rubs Gastrointestinal/Abdominal: Normal Bowel Sounds, Soft. No Guarding, Rebound, Tenderness Musculoskeletal: No CVA Tenderness Extremity: Normal Capillary Refill Integumentary: Normal Color, Dry, Warm Neurologic: Fully Oriented, Alert, Normal Mood/Affect, Normal Response, ED Treatment Course - LABORATORY CBC & Chemistry Diagram: 07/24/18 06:30 07/24/18 06:30 - ADDITIONAL ORDERS Additional order review: Laboratory Results 07/24/18 07/24/18 07/24/18 06:49 06:30 06:30 Sodium 141 Potassium 4.5 Chloride 105 Carbon Dioxide 27 Anion Gap 9 BUN 26 H Creatinine 0.9 Creat Clearance w eGFR > 60 Random Glucose 110 H Calcium 8.9 Total Bilirubin 0.6 AST 35 ALT 62 H Alkaline Phosphatase 110 Total Protein 8.5 H Albumin 4.7 Lipase 187 Serum , Qual Negative 07/24/18 06:30 RBC 5.07 MCV 91.2 MCHC 32.7 RDW 13.0 MPV 8.1 Neutrophils % 87.1 H D Lymphocytes % 5.6 L D Monocytes % 6.8 Eosinophils % 0.2 D Basophils % 0.3 - Medications Given in the ED: ED Medications Discontinued Medications Generic Name Dose Route Start Last Admin Trade Name Freq PRN Reason Stop Dose Admin Acetaminophen 1,000 mg 07/24/18 06:00 07/24/18 06:30 Ofirmev Injection - IVPB 07/24/18 06:01 1,000 mg ONCE ONE Administration Famotidine/Sodium Chloride 20 mg in 50 mls @ 100 mls/hr 07/24/18 06:00 07:30 Pepcid 20 Mg Premixed Ivpb - IVPB 07/24/18 06:29 100 mls/hr ONCE ONE Administration Sodium Chloride 1,000 mls @ 1,000 mls/hr 07/24/18 06:00 07/24/18 06:30 Normal Saline - IV 07/24/18 06:59 1,000 mls/hr ASDIR STA Administration Ketorolac Tromethamine 30 mg 07/24/18 06:55 07/24/18 07:25 Toradol Injection - IVPUSH 07/24/18 06:56 30 mg ONCE ONE Administration Metoclopramide HCl 10 mg 07/24/18 06:55 07/24/18 07:45 Reglan Injection - IVPUSH 07/24/18 06:56 10 mg ONCE ONE Administration Ondansetron HCl 4 mg 07/24/18 06:00 07/24/18 06:25 Zofran Injection IVPUSH 07/24/18 06:01 4 mg ONCE ONE Administration Progress Note - Progress Note Progress Note: The patient is a 53 year old female with a history of asthma who presents for evaluation of abdominal pain, nausea, vomiting. The patient noted to have eaten some meat that might have gone bad and has been experiencing generalized abdominal cramping, nausea, vomiting, and diarrhea. She is pending lab results and CT scan and reassessment. Medical Decision Making - Medical Decision Making 07/24/18 10:30 CBC demonstrates a wbc to 16 which is expected as the patient recently took prednisone. CMP is unremarkable. CT abdomen/pelvis is unremarkable as read by our radiologist. The patient reports significant improvement in her symptoms with a benign abdominal exam. She has tolerated PO intake and we are comfortable discharging the patient home with primary care provider follow up. We discussed the results, plan, and return precautions with the patient who voiced understanding and is agreeable with the plan. *DC/Admit/Observation/Transfer Diagnosis at time of Disposition: Abdominal pain, generalized Nausea & vomiting Qualifiers: Vomiting type: unspecified Vomiting Intractability: unspecified Qualified Code( s): R11.2 - Nausea with vomiting, unspecified - Discharge Dispostion Condition at time of disposition: Stable - Prescriptions Prescriptions: Famotidine [Pepcid -] 20 mg PO DAILY #7 tablet Mag Hydrox/Al Hydrox/Simeth [Mylanta *Suspension*] 30 ml PO Q6H #12 cup Ondansetron [Zofran -] 4 mg PO TID #21 tablet - Referrals Referrals: Ramiro Chery [Primary Care Provider] - Michel Almonte MD [Staff Physician] - - Patient Instructions Printed Discharge Instructions: DI for Abdominal Pain-Adult, Nausea and Vomiting-Adult Additional Instructions: Please return to the ER if you experience concerning or worsening symptoms including worsening difficulty breathing, weakness, or chest pain, abdominal pain, fevers, vomiting. Your lab results and CT scan were normal here in the ER. Please call to schedule a follow up appointment with your primary care provider and our GI specialist within 2-3 days to discuss your ER visit and further management of your symptoms. - Post Discharge Activity
--- NOTE | 2018-07-24 12:00 | EKG ---
Test Reason : Blood Pressure : / mmHG Vent. Rate : 094 BPM Atrial Rate : 094 BPM P-R Int : 136 ms QRS Dur : 096 ms QT Int : 366 ms P-R-T Axes : 076 079 074 degrees QTc Int : 457 ms NORMAL SINUS RHYTHM POSSIBLE LEFT ATRIAL ENLARGEMENT INCOMPLETE RIGHT BUNDLE BRANCH BLOCK BORDERLINE ECG WHEN COMPARED WITH ECG OF 21-JUL-2018 11:57, NO SIGNIFICANT CHANGE WAS FOUND Confirmed by MARIO MATHUR, JOÃO ([id number]) on 07/24/2018 11:59:50 AM Referred By: Confirmed By:JOÃO MARTIN MD
== END 2018-07-24 12:48 | disposition home or self-care (01) ==
LOC: JER 05:41
PROC: 3E033GC Introduction of Other Therapeutic Substance into Peripheral Vein, Percutaneous Approach (ICD-10-PCS; principal; 2018-07-24)
PROC: 3E0337Z Introduction of Electrolytic and Water Balance Substance into Peripheral Vein, Percutaneous Approach (ICD-10-PCS; 2018-07-24)
PROC: 3E0333Z Introduction of Anti-inflammatory into Peripheral Vein, Percutaneous Approach (ICD-10-PCS; 2018-07-24)
PROC: 3E033NZ Introduction of Analgesics, Hypnotics, Sedatives into Peripheral Vein, Percutaneous Approach (ICD-10-PCS; 2018-07-24)
DX: I10 Essential (primary) hypertension (principal); I34.1 Nonrheumatic mitral (valve) prolapse
CPT/HCPCS: 36415; 74177-TC; 80053; 83690; 84703; 85025; 93005; 93010; 96361; 96365; 96375; 99283-25; J0131; J7030

== ENCOUNTER 2020-02-29 13:29 | Emergency (ER) | payer OTHER ==
[2020-02-29 13:32] VITALS: BMI 25.4
[2020-02-29] MEDS ORDERED: ACETAMINOPHEN 325 MG TABLET (FP) PO ONE (13:45)
[2020-02-29] MEDS ORDERED: ALPRAZolam 0.25 MG TABLET PO STA (13:57)
[2020-02-29] MEDS ORDERED: ACETAMINOPHEN 325 MG TABLET (FP) ONE (14:13)
[2020-02-29] MEDS ORDERED: ALPRAZolam 0.25 MG TABLET ONE (14:14)
[2020-02-29 14:40] LABS: BASO % 1.5 % (0-2.0); EOS % 9.8 % (0-4.5); HEMATOCRIT 40.6 % (32.4-45.2); HEMOGLOBIN 13.6 GM/dL (10.7-15.3); LYMPH % 24.8 % (8-40); MCH 31.1 pg (25.7-33.7); MCHC 33.5 g/dl (32.0-36.0); MEAN CELL VOLUME 92.9 fl (80-96); MEAN PLT VOLUME 8.8 fl (7.5-11.1); MONO % 8.7 % (3.8-10.2); NEUT % 55.2 % (42.8-82.8); PLATELET COUNT 273 K/MM3 (134-434); RBC 4.37 M/mm3 (3.60-5.2); RDW 12.3 % (11.6-15.6); WHITE BLOOD COUNT 9.8 K/mm3 (4.0-10.0)
--- NOTE | 2020-02-29 14:54 | PDOC ---
History of Present Illness - General Chief Complaint: Chest Pain Stated Complaint: CHEST PAIN Time Seen by Provider: 02/29/20 13:43 History Source: Patient Exam Limitations: No Limitations - History of Present Illness Initial Comments: Pt is a 54 yo F, with PMH of asthma (prior intubations) and anxiety, who is presenting from home for L-sided chest pressure. Pt states the pain occurred while she was watching tv. The pain was sharp, lasted about 30 seconds, and resolved spontaneously. Pt states it was associated with nausea and radiated to her L shoulder, but not associated with diaphoresis, vomiting or radiation to the arms. She cannot describe exacerbating or alleviating factors. Pt denies any fevers/chills, headache, vision changes, syncope, palpitations, SOB, vomiting, abdominal pain, urinary symptoms, diarrhea/constipation, or leg swelling. Allergies: NKDA PCP: Dr. Chery Cards: Dr. Bearden -- pt had stress test and echo done ~1 week ago. Results were "normal" per pt. Social: Pt denies any cigarette, alcohol, or drug use. Pt denies any recent travel or sick contacts. Surgical: no relevant history. Family: early IA in brother. 02/29/20 14:54 02/29/20 16:51 Past History - Travel History Traveled outside of the country in the last 30 days: No Close contact w/someone who was outside of country & ill: No - Medical History Allergies/Adverse Reactions: Allergies Allergy/AdvReac Type Severity Reaction Status Date / Time No Known Allergies Allergy Verified 02/29/20 13:32 Home Medications: Ambulatory Orders Albuterol 0.083% Nebulizer Denise [Ventolin 0.083% Nebulizer Soln -] 1 neb NEB QID PRN 05/04/17 Cetirizine HCl [Zyrtec -] 10 mg PO DAILY 05/04/17 Montelukast Na [Singulair -] 10 mg PO AM 05/04/17 Fluticasone Prop 0.05% Nasal [Flonase -] 1 - 2 spray NS BID 04/10/18 Ipratropium/Albuterol Sulfate [Combivent Respimat 20-100 Mcg] 2 puff IH BID 04/10/18 Prednisone 60 mg PO DAILY #22 tab.ds.pk 07/21/18 Albuterol Sulfate Inhaler - [Ventolin Hfa Inhaler -] 1 - 2 inh PO QID PRN 12/22 0/20 Alprazolam [Xanax] 0.5 mg PO ASDIR PRN 01/10/20 Fluticasone Propionate [Flovent Hfa] 2 puff IH BID 01/10/20 Ipratropium/Albuterol Sulfate [Combivent Respimat Inhal [place]] 2 puff IH BID 01/10/20 Asthma: Yes (2 INTUBATIONS.) Cardiac Disorders: Yes (MITRAL VALVE PROLAPSE) COPD: No HTN: Yes - Surgical History Abdominal Surgery: No - Reproductive History Is Patient Now?: No - Immunization History Immunization Up to Date: Yes - Psycho-Social/Smoking History Smoking Status: No Smoking History: Never smoked Have you smoked in the past 12 months: No Number of Cigarettes Smoked Daily: 0 Information on smoking cessation initiated: No - Substance Abuse Hx (Audit-C & DAST Scrn) How often the patient has a drink containing alcohol: Never Score: In Men: 4 or > Positive; In Women: 3 or > Positive: 0 Screen Result (Pos requires Nsg. Audit-10AR): Negative Cardiac Specific PMH - Complaint Specific PMHX Abdominal Aortic Aneurysm: No Angina: No Cardiac Arrhythmia: No Cardiac Stent: No GERD: No Myocardial Infarction: No Pulmonary Embolus: No Valvular Heart Disease: No Peripheral Vascular Disease: No Review of Systems - Review of Systems Able to Perform ROS?: Yes Is the patient limited Tajik proficient: No Constitutional: Yes: Weight Stable. No: Chills, Diaphoresis, Fever, Loss of Appetite, Malaise, Weakness HEENTM: No: Recent change in vision, Nose Congestion, Throat Pain, Throat Swelling, Difficulty Swallowing Respiratory: No: Cough, Orthopnea, Shortness of Breath Cardiac (ROS): Yes: Chest Pain. No: Edema, Irregular Heart Rate, Lightheadedness, Palpitations, Syncope, Chest Tightness ABD/GI: Yes: Nausea. No: Constipated, Diarrhea, Poor Appetite, Poor Fluid Intake, Vomiting : No: Burning, Dysuria, Frequency, Flank Pain, Hematuria, Pain, Urgency Musculoskeletal: Yes: See HPI, Back Pain. No: Muscle Pain, Neck Pain Integumentary: No: Rash Neurological: No: Headache, Numbness, Paresthesia, Weakness, Unsteady Gait, Dizziness Psychiatric: No: Sleep Pattern Change, Change in Appetite Endocrine: No: Increased Urine, Change in Weight Hematologic/Lymphatic: No: Anemia, Blood Clots, Easy Bleeding, Easy Bruising All Other Systems: Reviewed and Negative *Physical Exam - Vital Signs Last Vital Signs Temp Pulse Resp BP Pulse Ox 93 H 14 124/82 99 02/29/20 13:32 02/29/20 13:32 02/29/20 13:32 02/29/20 13:32 - Physical Exam Vitals stable (tachycardia improved on my exam), pt afebrile. Pt anxious appearing, but in NAD, normal body habitus. Pt alert and oriented x3. cisco engineer generally intact, muscular strength and sensation intact. No midline spinal tenderness, step-offs, or crepitus. Head normocephalic, atraumatic. Eyes PERRLA, EOMI. Oropharynx without erythema or exudates, no LAD b/l. No nasal congestion. Hearing intact. +Reproducible L-sided chest wall TTP. Clear heart sounds, S1/S2, no JVD, b/l pedal edema, or heart murmur. Clear lung sounds, no respiratory distress, wheezes, crackles, or accessory muscle use. No abdominal or CVA tenderness to palpation, no rebound, no guarding. Abdomen soft, non-distended, and with normoactive bowel sounds. Skin without jaundice or rash. 02/29/20 17:28 Heart Score/ECG Review - History History: Slightly suspicious - Electrocardiogram EKG: Non specific repolarization disturbance - Age Age: 45-65 - Risk Factors Risk Factors Heart Score: Yes Positive family hx of cardiac disease Based on the list above the patient has:: 1-2 risk factors - Troponin Troponin: </= normal limit - Score Heart Score - Total: 3 ED Treatment Course - LABORATORY CBC & Chemistry Diagram: 02/29/20 02:00 02/29/20 02:00 - ADDITIONAL ORDERS Additional order review: Laboratory Results 02/29/20 02/29/20 04:55 02:00 Sodium 140 Potassium 4.1 Chloride 106 Carbon Dioxide 23 Anion Gap 10 BUN 10.2 Creatinine 0.8 Est GFR (CKD-EPI)AfAm 98.24 Est GFR (CKD-EPI)NonAf 84.76 Random Glucose 104 Calcium 8.7 Magnesium 2.3 Total Bilirubin 0.4 AST 49 H ALT 71 H Alkaline Phosphatase 92 Troponin I < 0.02 < 0.02 Total Protein 7.3 Albumin 4.1 02/29/20 02:00 RBC 4.37 MCV 92.9 MCHC 33.5 RDW 12.3 MPV 8.8 Neutrophils % 55.2 Lymphocytes % 24.8 Monocytes % 8.7 Eosinophils % 9.8 H Basophils % 1.5 - RADIOLOGY Radiology Studies Ordered: Category Date Time Status CHEST PA & LAT [RAD] Stat Radiology 02/29/20 13:59 Taken - Medications Given in the ED: ED Medications Discontinued Medications Generic Name Dose Route Start Last Admin Trade Name Cleve PRN Reason Stop Dose Admin Acetaminophen 650 mg 02/29/20 13:45 02/29/20 14:18 Tylenol - PO 02/29/20 13:46 650 mg ONCE ONE Administration Alprazolam 0.5 mg 02/29/20 13:57 02/29/20 14:19 Xanax - PO 02/29/20 13:58 0.5 mg ONCE STA Administration Medical Decision Making - Medical Decision Making Pt was seen at bedside, also will be seen by attending Dr. Aguilar. Pt presenting with sharp L-sided chest pain, reproducible on exam, less likely ACS or cardiac in origin. No recent trauma to chest. Recent stress test and echo without significant findings. Will obtain trop x2 (3-hour delta). Likely f/u to home with PCP and cardiology f/u. Pain has resolved by arrival. Pt took aspirin before arrival. Provided 650 mg PO tylenol for improvement of discomfort. Will continue to reassess pt and monitor for symptomatic improvement. ECG: Incomplete RBBB, prolonged QT (HR 93, KY 142, QRS 98, QTc 460). No significant changes from prior ECG (01/10/2020). 02/29/20 17:39 CBC and CMP WNL First troponin <.02 02/29/20 17:42 Chest x-ray without distinct infiltrate, pneumothorax, free air. 02/29/20 17:44 Second troponin <.02 No active chest pain at this time Pt safe for d/c to home with PCP and cardiology f/u. Strict return precautions provided with pt understanding. 02/29/20 17:51 Discharge - Discharge Information Problems reviewed: Yes Clinical Impression/Diagnosis: Left-sided chest pain, Atypical chest pain Condition: Good Disposition: HOME - Admission No - Follow up/Referral Referrals: Ramiro Chery [Primary Care Provider] - Castro Bearden MD [Staff Physician] - - Patient Discharge Instructions Patient Printed Discharge Instructions: DI for Atypical Chest Pain Additional Instructions: You were seen in the ER today for chest pain. The results of your labs and imaging today were normal. Please follow-up with your primary care doctor and cardiology within 1-2 days to discuss your visit and make sure your symptoms have improved. Please return to the ER if you have any worsening pain, development of fevers or chills, loss of consciousness, inability to tolerate food or fluids, or any other concerns. You can take tylenol every 4-6 hours as needed for pain. - Post Discharge Activity
[2020-02-29 15:05] LABS: ALBUMIN 4.1 g/dl (3.4-5.0); ALK PHOS 92 U/L (45-117); ANION GAP 10 MMOL/L (8-16); BILIRUBIN,TOTAL 0.4 mg/dL (0.2-1); BLOOD UREA NITROGEN 10.2 mg/dL (7-18); CALCIUM 8.7 mg/dL (8.5-10.1); CHLORIDE 106 mmol/L (98-107); CO2 23 mmol/L (21-32); CREATININE 0.8 mg/dL (0.55-1.3); GLUCOSE,RANDOM 104 mg/dL (74-106); MAGNESIUM 2.3 mg/dL (1.8-2.4); POTASSIUM 4.1 mmol/L (3.5-5.1); SGOT/AST 49 U/L (15-37); SGPT/ALT 71 U/L (13-61); SODIUM 140 mmol/L (136-145); TOT PROT 7.3 g/dl (6.4-8.2)
--- NOTE | 2020-02-29 16:30 | PDOC ---
Documentation entered by Nica Cleveland SCRIBE, acting as scribe for Samantha Aguilar MD. Samantha Aguilar MD: This documentation has been prepared by the scribe, Nica Cleveland SCRIBE, under my direction and personally reviewed by me in its entirety. I confirm that the documentation accurately reflects all work, treatment, procedures, and medical decision making performed by me. Attending Attestation - Resident Resident Name: IngrisIvelisse - ED Attending Attestation I have performed the following: I have examined & evaluated the patient, The case was reviewed & discussed with the resident, I agree w/resident's findings & plan, Exceptions are as noted - HPI HPI: 02/29/20 13:48 Patient is a 54 year old female with a significant past medical history of asthma (requiring ICU stay/intubation), mitral valve prolapse, MVP, right bundle branch block, and asthma (requiring ICU stay/intubation), who presents to the ED with L sided sharp stabbing chest pain, lasted ~30 seconds, non-exertional, resolved on its own. Patient states shes never had this before however as per EMR has been seen for the same on previous visit. Had recent negative stress and echo (within the last 2 weeks). Patient took asa prior to arrival. No infectious complaints and currently without any symptoms or complaints. Allergies: NKDA - Physicial Exam PE: 02/29/20 15:10 General: well appearing HEENT: NCAT Chest: CTAB, good air entry, no wheezes rales or rhonchi CVS: + s1 s2, RRR - Medical Decision Making 02/29/20 15:11 54 yo F with chest pain, low suspicion for ACS and EKG without ischemic changes, patient follows with cardiology, more likely msk vs. anxiety. Plan: -labs -cxr -reassess, if CE's negative x2 can be d/opal with return precaution, recommend PMD f/u This clinical encounter is taking place during a federal and state health care emergency attributable to the novel [place] Virus pandemic. The Information Assurance Officer of the Department of Health and Human Services has declared, pursuant to the Public Health Service Act 319F-3 (42 U.S.C. 247d-6d), that a covered persons activities related to medical countermeasures against COVID-19 will be immune from liability under Federal and State law. Discharge - Discharge Information Problems reviewed: Yes Clinical Impression/Diagnosis: Left-sided chest pain, Atypical chest pain Condition: Good Disposition: HOME - Follow up/Referral Referrals: Castro Bearden MD [Staff Physician] - Ramiro Chery [Primary Care Provider] - - Patient Discharge Instructions Patient Printed Discharge Instructions: DI for Atypical Chest Pain Additional Instructions: You were seen in the ER today for chest pain. The results of your labs and imaging today were normal. Please follow-up with your primary care doctor and cardiology within 1-2 days to discuss your visit and make sure your symptoms have improved. Please return to the ER if you have any worsening pain, development of fevers or chills, loss of consciousness, inability to tolerate food or fluids, or any other concerns. You can take tylenol every 4-6 hours as needed for pain. - Post Discharge Activity
[2020-02-29 17:53] VITALS: BP 107/66; PULSE 76
--- NOTE | 2020-03-01 09:17 | EKG ---
Test Reason : Blood Pressure : / mmHG Vent. Rate : 093 BPM Atrial Rate : 093 BPM P-R Int : 142 ms QRS Dur : 098 ms QT Int : 370 ms P-R-T Axes : 070 063 056 degrees QTc Int : 460 ms POOR DATA QUALITY, INTERPRETATION MAY BE ADVERSELY AFFECTED SINUS RHYTHM WITH OCCASIONAL PREMATURE VENTRICULAR COMPLEXES POSSIBLE LEFT ATRIAL ENLARGEMENT INCOMPLETE RIGHT BUNDLE BRANCH BLOCK NONSPECIFIC T WAVE ABNORMALITY PROLONGED QT ABNORMAL ECG WHEN COMPARED WITH ECG OF 10-JAN-2020 17:56, PREMATURE VENTRICULAR COMPLEXES ARE NOW PRESENT Confirmed by Minerva Perez ([id number]) on 03/01/2020 9:16:55 AM Referred By: Confirmed By:Minerva Perez
== END 2020-02-29 18:01 | disposition home or self-care (01) ==
LOC: JER 13:29
DX: R07.89 Other chest pain (principal)
CPT/HCPCS: 36415; 71046-TC-FY; 80053; 83735; 84484; 85025; 93005; 93010; 99285-25

== ENCOUNTER 2021-02-08 00:01 | Emergency (ER) | payer OTHER ==
[2021-02-08 00:57] VITALS: BP 154/85; PULSE 83; TEMP 99; BMI 24.5
[2021-02-08] MEDS ORDERED: predniSONE 20 MG TABLET (UD) PO ONE (02:10)
[2021-02-08] MEDS ORDERED: predniSONE 20 MG TABLET (UD) ONE (02:25)
[2021-02-08] MEDS ORDERED: ALBUTEROL SO4 2.5/IPRATROPIUM 0.5 INH SOL 3 ML VIAL.NEB. NEB ONE (02:25)
[2021-02-08] MEDS: ALBUTEROL SO4 2.5/IPRATROPIUM 0.5 INH SOL 3 ML VIAL.NEB. NEB SCH ×2 (02:29→02:30)
[2021-02-08 03:04] LABS: BASO % 1.2 % (0-2.0); HEMATOCRIT 34.8 % (32.4-45.2); HEMOGLOBIN 11.7 GM/dL (10.7-15.3); LYMPH % 31.6 % (8-40); MCH 31.4 pg (25.7-33.7); MCHC 33.7 g/dl (32.0-36.0); MEAN CELL VOLUME 93.4 fl (80-96); MEAN PLT VOLUME 8.4 fl (7.5-11.1); MONO % 9.8 % (3.8-10.2); NEUT % 50.4 % (42.8-82.8); PLATELET COUNT 255 10^3/uL (134-434); RBC 3.73 M/mm3 (3.60-5.2); RDW 12.3 % (11.6-15.6); WHITE BLOOD COUNT 8.7 K/mm3 (4.0-10.0)
[2021-02-08 03:20] LABS: CHLORIDE 105 mmol/L (98-107); SODIUM 138 mmol/L (136-145)
[2021-02-08 03:24] LABS: ANION GAP 9 MMOL/L (8-16); BLOOD UREA NITROGEN 13.9 mg/dL (7-18); CALCIUM 8.4 mg/dL (8.5-10.1); CO2 25 mmol/L (21-32); GLUCOSE,RANDOM 110 mg/dL (74-106); MAGNESIUM 2.3 mg/dL (1.8-2.4)
[2021-02-08 03:25] LABS: ALBUMIN 3.5 g/dl (3.4-5.0)
[2021-02-08 03:28] LABS: BILIRUBIN,TOTAL 0.4 mg/dL (0.2-1); CREATININE 0.7 mg/dL (0.55-1.3); SGOT/AST 64 U/L (15-37); SGPT/ALT 47 U/L (13-61); TOT PROT 6.7 g/dl (6.4-8.2)
[2021-02-08 03:30] LABS: ALK PHOS 73 U/L (45-117)
== END 2021-02-08 04:00 | disposition home or self-care (01) ==
LOC: JER 00:01
PROC: 3E0F7GC Introduction of Other Therapeutic Substance into Respiratory Tract, Via Natural or Artificial Opening (ICD-10-PCS; principal; 2021-02-08)
DX: R53.1 Weakness (principal); J45.909 Unspecified asthma, uncomplicated
CPT/HCPCS: 36415; 80053; 82550; 82553; 83735; 84484; 85025; 93005; 93010; 99285-25

== ENCOUNTER 2021-11-03 10:11 | Emergency (ER) | payer SELFPAY ==
[2021-11-03 10:20] VITALS: BP 128/76; PULSE 85; TEMP 97.4; BMI 23.1
[2021-11-03] MEDS ORDERED: ALBUTEROL SO4 2.5/IPRATROPIUM 0.5 INH SOL 3 ML VIAL.NEB. NEB ONE ×2 (10:21→10:24)
[2021-11-03] MEDS ORDERED: MAGNESIUM SULF 50% (8.12 MEQ/2 ML-1 GM VIAL) IVPB ONE (10:28)
[2021-11-03] MEDS ORDERED: methylPREDNISolone NA SUCC 125 MG/2 ML VIAL IVPUSH ONE (10:30)
[2021-11-03] MEDS ORDERED: methylPREDNISolone NA SUCC 125 MG/2 ML VIAL ONE (10:41)
[2021-11-03] MEDS ORDERED: MAGNESIUM SULFATE IN WATER 2 GM/50 ML IVPB IVPB ONE (10:42)
[2021-11-03] MEDS ORDERED: ALBUTEROL SO4 0.083% IH SOL 2.5 MG/3 ML VIAL.NEB. NEB ONE ×4 (10:47→13:25)
[2021-11-03] MEDS ORDERED: FLUTICASONE PROP 0.05% 16 GM NASAL SPRAY NS ONE (11:03)
[2021-11-03] MEDS ORDERED: SODIUM CHLORIDE NASAL SPRAY 44 ML BOTTLE NS ONE (11:04)
[2021-11-03 11:07] LABS: BASO % 1.9 % (0-2.0); EOS % 7.5 % (0-4.5); HEMATOCRIT 39.9 % (32.4-45.2); HEMOGLOBIN 13.2 GM/dL (10.7-15.3); LYMPH % 29.7 % (8-40); MCHC 32.9 g/dl (32.0-36.0); MEAN CELL VOLUME 91.2 fl (80-96); MEAN PLT VOLUME 8.2 fl (7.5-11.1); MONO % 7.7 % (3.8-10.2); NEUT % 53.2 % (42.8-82.8); PLATELET COUNT 257 10^3/uL (134-434); RBC 4.38 M/mm3 (3.60-5.2); RDW 12.2 % (11.6-15.6); WHITE BLOOD COUNT 7.6 K/mm3 (4.0-10.0)
[2021-11-03 11:30] LABS: ALBUMIN 3.9 g/dl (3.4-5.0); BLOOD UREA NITROGEN 10.7 mg/dL (7-18); CALCIUM 8.6 mg/dL (8.5-10.1)
[2021-11-03 11:33] LABS: CREATININE 0.6 mg/dL (0.55-1.3)
[2021-11-03 11:35] LABS: BILIRUBIN,TOTAL 0.3 mg/dL (0.2-1); TOT PROT 7.3 g/dl (6.4-8.2)
[2021-11-03 11:38] LABS: N-TERMINAL BNP 39.8 pg/ml (5-125)
[2021-11-03] MEDS ORDERED: ACETAMINOPHEN 500 MG TABLET (FP) PO ONE (14:11)
[2021-11-03] MEDS ORDERED: ACETAMINOPHEN 325 MG TABLET (FP) ONE (14:17)
== END 2021-11-03 14:37 | disposition home or self-care (01) ==
LOC: JER 10:11
PROC: 3E0F7GC Introduction of Other Therapeutic Substance into Respiratory Tract, Via Natural or Artificial Opening (ICD-10-PCS; principal; 2021-11-03)
PROC: 3E033GC Introduction of Other Therapeutic Substance into Peripheral Vein, Percutaneous Approach (ICD-10-PCS; 2021-11-03)
PROC: 3E033GC Introduction of Other Therapeutic Substance into Peripheral Vein, Percutaneous Approach (ICD-10-PCS; 2021-11-03)
DX: J45.901 Unspecified asthma with (acute) exacerbation (principal)
CPT/HCPCS: 36415; 71045-TC-FY; 80053; 83880; 84484; 85025; 93005; 93010; 99285-25; C9803-CS; U0003; U0005

== ENCOUNTER 2021-12-28 07:33 | Emergency (ER) | payer OTHER ==
[2021-12-28] MEDS: ALBUTEROL SO4 2.5/IPRATROPIUM 0.5 INH SOL 3 ML VIAL.NEB. NEB ONE ×2 (07:35→08:05)
[2021-12-28] MEDS ORDERED: ALBUTEROL SO4 2.5/IPRATROPIUM 0.5 INH SOL 3 ML VIAL.NEB. NEB ONE ×2 (07:45→10:36)
[2021-12-28 07:48] VITALS: TEMP 97.4; BMI 24.4
[2021-12-28] MEDS ORDERED: MAGNESIUM 1GM/D5W - 2 GM/200 ML IVPB IVPB ONE (07:48)
[2021-12-28] MEDS ORDERED: methylPREDNISolone NA SUCC 125 MG/2 ML VIAL ONE (07:48)
[2021-12-28] MEDS ORDERED: methylPREDNISolone NA SUCC 125 MG/2 ML VIAL IVPUSH ONE (07:49)
[2021-12-28] MEDS ORDERED: MAGNESIUM SULF 50% (8.12 MEQ/2 ML-1 GM VIAL) IVPB ONE (07:50)
[2021-12-28] MEDS ORDERED: ALBUTEROL SO4 0.083% IH SOL 2.5 MG/3 ML VIAL.NEB. NEB ONE ×4 (08:04→10:37)
[2021-12-28 08:34] LABS: ALBUMIN 3.9 g/dl (3.4-5.0); BLOOD UREA NITROGEN 18.3 mg/dL (7-18); CALCIUM 8.8 mg/dL (8.5-10.1)
[2021-12-28 08:37] LABS: CREATININE 0.6 mg/dL (0.55-1.3)
[2021-12-28 08:39] LABS: BILIRUBIN,TOTAL 0.5 mg/dL (0.2-1); TOT PROT 7.8 g/dl (6.4-8.2)
[2021-12-28 08:45] LABS: EOS % 5.7 % (0-4.5); HEMATOCRIT 40.7 % (32.4-45.2); HEMOGLOBIN 13.4 GM/dL (10.7-15.3); LYMPH % 40.6 % (8-40); MCH 30.6 pg (25.7-33.7); MCHC 32.9 g/dl (32.0-36.0); MEAN PLT VOLUME 7.7 fl (7.5-11.1); MONO % 8.3 % (3.8-10.2); NEUT % 44.4 % (42.8-82.8); PLATELET COUNT 275 10^3/uL (134-434); RBC 4.38 M/mm3 (3.60-5.2); RDW 13.3 % (11.6-15.6); WHITE BLOOD COUNT 9.9 K/mm3 (4.0-10.0)
[2021-12-28 09:30] VITALS: BP 113/71; PULSE 93
== END 2021-12-28 12:21 | disposition home or self-care (01) ==
LOC: JER 07:33
PROC: 3E0F7GC Introduction of Other Therapeutic Substance into Respiratory Tract, Via Natural or Artificial Opening (ICD-10-PCS; principal; 2021-12-28)
PROC: 3E033GC Introduction of Other Therapeutic Substance into Peripheral Vein, Percutaneous Approach (ICD-10-PCS; 2021-12-28)
DX: J45.901 Unspecified asthma with (acute) exacerbation (principal)
CPT/HCPCS: 36415; 71045-TC-FY; 80053; 84703; 85025; 99284-25; C9803-CS; U0003; U0005

== ENCOUNTER 2022-03-17 07:11 | Inpatient (IN) | payer OTHER ==
[2022-03-17] MEDS ORDERED: ALBUTEROL SO4 2.5/IPRATROPIUM 0.5 INH SOL 3 ML VIAL.NEB. NEB ONE ×2 (07:41→07:43)
[2022-03-17] MEDS ORDERED: MAGNESIUM SULF 50% (8.12 MEQ/2 ML-1 GM VIAL) IVPB ONE (07:43)
[2022-03-17] MEDS ORDERED: MAGNESIUM SULFATE IN WATER 2 GM/50 ML IVPB IVPB ONE (08:07)
[2022-03-17 08:12] LABS: BASO % 0.1 % (0-2.0); HEMATOCRIT 39.4 % (32.4-45.2); MCH 30.7 pg (25.7-33.7); MCHC 32.8 g/dl (32.0-36.0); MEAN CELL VOLUME 93.5 fl (80-96); MEAN PLT VOLUME 7.7 fl (7.5-11.1); MONO % 13.1 % (3.8-10.2); NEUT % 71.8 % (42.8-82.8); PLATELET COUNT 314 10^3/uL (134-434); RBC 4.22 M/mm3 (3.60-5.2); RDW 12.1 % (11.6-15.6); WHITE BLOOD COUNT 15.5 K/mm3 (4.0-10.0)
[2022-03-17 08:15] LABS: INR 0.96 (0.83-1.09)
[2022-03-17 08:18] LABS: ACTIVATED PTT 26.6 SECONDS (25.2-36.5)
[2022-03-17 08:30] LABS: VENOUS BASE EXCESS 1.2 mmol/L (-2-2); VENOUS O2 SATURATION 92.9 % (70-80); VENOUS PCO2 43.9 mmHg (38-52); VENOUS PH 7.397 (7.310-7.410)
[2022-03-17 08:38] LABS: CALCIUM 9.3 mg/dL (8.5-10.1)
[2022-03-17 08:39] LABS: ALBUMIN 4.1 g/dl (3.4-5.0); BLOOD UREA NITROGEN 11.4 mg/dL (7-18); MAGNESIUM 2.6 mg/dL (1.8-2.4)
[2022-03-17 08:42] LABS: CREATININE 0.7 mg/dL (0.55-1.3)
[2022-03-17 08:44] LABS: BILIRUBIN,TOTAL 0.2 mg/dL (0.2-1); TOT PROT 7.3 g/dl (6.4-8.2)
[2022-03-17] MEDS ORDERED: ALBUTEROL SO4 0.042% IH SOL 1.25 MG/3 ML VIAL.NEB NEB ONE (09:11)
[2022-03-17] MEDS ORDERED: methylPREDNISolone NA SUCC 125 MG/2 ML VIAL IVPB ONE (09:11)
[2022-03-17] MEDS ORDERED: ALBUTEROL SO4 0.083% IH SOL 2.5 MG/3 ML VIAL.NEB. NEB ONE ×3 (09:13→11:06)
[2022-03-17] MEDS ORDERED: methylPREDNISolone NA SUCC 125 MG/2 ML VIAL ONE (09:14)
[2022-03-17] MEDS ORDERED: SODIUM CHLORIDE 1,000 ML IV SCH (10:45)
[2022-03-17] MEDS ORDERED: ALBUTEROL SO4 0.083% IH SOL 2.5 MG/3 ML VIAL.NEB. NEB SCH (10:45)
[2022-03-17] MEDS ORDERED: AZITHROMYCIN IVPB 500 MG/250 ML BAG IVPB ONE (11:06)
[2022-03-17] MEDS: AZITHROMYCIN IVPB 250 MG in DEXTROSE 5%-WATER - 250 ML IVPB SCH (11:56)
[2022-03-17] MEDS ORDERED: methylPREDNISolone NA SUCC 40 MG/1 ML VIAL ONE ×2 (13:04→15:23)
[2022-03-17] MEDS: methylPREDNISolone NA SUCC 40 MG/1 ML VIAL IVPUSH SCH ×3 (13:08→21:32)
[2022-03-17] MEDS: BUDESONIDE/FORMETEROL FUMARATE 160/4.5 mcg INHALER IH SCH ×2 (14:02→22:35)
[2022-03-17 16:02] LABS: PH,URINE 6.5 (5.0-8.0); URINE APPEARANCE CLEAR; URINE BILIRUBIN NEGATIVE (NEGATIVE); URINE COLOR YELLOW; URINE GLUCOSE (UA) TRACE (NEGATIVE); URINE KETONE NEGATIVE (NEGATIVE); URINE LEUK ESTERASE NEGATIVE (NEGATIVE); URINE NITRITE NEGATIVE (NEGATIVE); URINE PROTEIN NEGATIVE (NEGATIVE); URINE UROBILINOGEN 0.2 mg/dL (0.2-1.0)
[2022-03-17] MEDS: ALBUTEROL SO4 2.5/IPRATROPIUM 0.5 INH SOL 3 ML VIAL.NEB. NEB SCH ×2 (16:08→20:54)
[2022-03-17] MEDS ORDERED: methylPREDNISolone NA SUCC 40 MG/1 ML VIAL IVPUSH SCH (18:00)
[2022-03-17] MEDS ORDERED: ACETAMINOPHEN 325 MG TABLET (FP) PO ONE (20:30)
[2022-03-18] MEDS: ALBUTEROL SO4 0.083% IH SOL 2.5 MG/3 ML VIAL.NEB. NEB PRN ×2 (00:04→06:08)
[2022-03-18] MEDS: hydrOXYzine HCL 10 MG/5 ML LIQUID BULK BOTTLE PO PRN (01:04)
[2022-03-18 01:37] VITALS: BMI 26.2
[2022-03-18] MEDS: methylPREDNISolone NA SUCC 40 MG/1 ML VIAL IVPUSH SCH ×4 (04:10→21:42)
[2022-03-18] MEDS: MONTELUKAST NA 10 MG TABLET PO SCH (06:29)
[2022-03-18 07:09] VITALS: RESP 20
[2022-03-18] MEDS: ALBUTEROL SO4 2.5/IPRATROPIUM 0.5 INH SOL 3 ML VIAL.NEB. NEB SCH ×4 (07:41→20:05)
[2022-03-18] MEDS ORDERED: ACETAMINOPHEN 325 MG TABLET (FP) PO PRN (08:40)
[2022-03-18 09:30] LABS: BASO % 0.1 % (0-2.0); HEMATOCRIT 37.5 % (32.4-45.2); HEMOGLOBIN 12.3 GM/dL (10.7-15.3); LYMPH % 11.8 % (8-40); MCH 30.5 pg (25.7-33.7); MCHC 32.8 g/dl (32.0-36.0); MONO % 8.7 % (3.8-10.2); NEUT % 79.4 % (42.8-82.8); PLATELET COUNT 297 10^3/uL (134-434); RBC 4.03 M/mm3 (3.60-5.2); RDW 12.3 % (11.6-15.6); WHITE BLOOD COUNT 17.3 K/mm3 (4.0-10.0)
[2022-03-18 09:40] LABS: INR 0.92 (0.83-1.09); PROTHROMBIN TIME (PATIENT) 10.6 SEC (9.7-13.0)
[2022-03-18] MEDS: ENOXAPARIN NA (PORCINE) 40 MG/0.4 ML DISP.SYRIN SQ SCH (10:09)
[2022-03-18] MEDS: LORATADINE 10 MG TABLET PO SCH (10:09)
[2022-03-18] MEDS: BUDESONIDE/FORMETEROL FUMARATE 160/4.5 mcg INHALER IH SCH ×2 (10:09→21:43)
[2022-03-18 10:11] LABS: ALBUMIN 3.6 g/dl (3.4-5.0); BLOOD UREA NITROGEN 9.2 mg/dL (7-18); CALCIUM 8.9 mg/dL (8.5-10.1); MAGNESIUM 2.5 mg/dL (1.8-2.4)
[2022-03-18 10:12] LABS: CREATININE 0.6 mg/dL (0.55-1.3); PHOSPHOROUS 3.8 mg/dL (2.5-4.9)
[2022-03-18 10:13] LABS: BILIRUBIN,TOTAL 0.4 mg/dL (0.2-1); TOT PROT 6.8 g/dl (6.4-8.2)
[2022-03-18] MEDS: AZITHROMYCIN IVPB 250 MG in DEXTROSE 5%-WATER - 250 ML IVPB SCH (10:13)
[2022-03-18] MEDS ORDERED: MAGNESIUM SULF 50% (8.12 MEQ/2 ML-1 GM VIAL) IVPB ONE (10:43)
[2022-03-18] MEDS ORDERED: SODIUM CHLORIDE FOR INHALATION 3 ML VIAL.NEB IH PRN (10:43)
[2022-03-18] MEDS ORDERED: MAG HYDROX/AL HYDROX/SIMETH 30 ML UNIT-DOSE CUP PO ONE (19:47)
[2022-03-19] MEDS: ALBUTEROL SO4 0.083% IH SOL 2.5 MG/3 ML VIAL.NEB. NEB PRN (02:03)
[2022-03-19] MEDS: methylPREDNISolone NA SUCC 40 MG/1 ML VIAL IVPUSH SCH ×3 (02:24→17:24)
[2022-03-19] MEDS: MONTELUKAST NA 10 MG TABLET PO SCH (06:20)
[2022-03-19] MEDS: ALBUTEROL SO4 2.5/IPRATROPIUM 0.5 INH SOL 3 ML VIAL.NEB. NEB SCH ×4 (09:12→19:48)
[2022-03-19] MEDS: LORATADINE 10 MG TABLET PO SCH (10:13)
[2022-03-19] MEDS: ENOXAPARIN NA (PORCINE) 40 MG/0.4 ML DISP.SYRIN SQ SCH (10:13)
[2022-03-19] MEDS: AZITHROMYCIN IVPB 250 MG in DEXTROSE 5%-WATER - 250 ML IVPB SCH (10:14)
[2022-03-19] MEDS: BUDESONIDE/FORMETEROL FUMARATE 160/4.5 mcg INHALER IH SCH ×2 (10:14→21:58)
[2022-03-19] MEDS: hydrOXYzine HCL 10 MG/5 ML LIQUID BULK BOTTLE PO PRN (22:30)
[2022-03-20] MEDS: methylPREDNISolone NA SUCC 40 MG/1 ML VIAL IVPUSH SCH (02:06)
[2022-03-20] MEDS: MONTELUKAST NA 10 MG TABLET PO SCH (06:27)
[2022-03-20 06:48] VITALS: BP 135/69; PULSE 73; TEMP 98.3
[2022-03-20] MEDS: ALBUTEROL SO4 2.5/IPRATROPIUM 0.5 INH SOL 3 ML VIAL.NEB. NEB SCH ×2 (08:50→12:55)
[2022-03-20 09:04] LABS: HEMATOCRIT 39.1 % (32.4-45.2); HEMOGLOBIN 12.9 GM/dL (10.7-15.3); MCH 30.9 pg (25.7-33.7); MEAN CELL VOLUME 93.5 fl (80-96); MEAN PLT VOLUME 7.5 fl (7.5-11.1); PLATELET COUNT 318 10^3/uL (134-434); RBC 4.18 M/mm3 (3.60-5.2); RDW 12.3 % (11.6-15.6); WHITE BLOOD COUNT 17.9 K/mm3 (4.0-10.0)
[2022-03-20 09:27] LABS: CALCIUM 8.7 mg/dL (8.5-10.1)
[2022-03-20 09:28] LABS: ALBUMIN 3.5 g/dl (3.4-5.0); BLOOD UREA NITROGEN 15.4 mg/dL (7-18); MAGNESIUM 2.6 mg/dL (1.8-2.4)
[2022-03-20 09:31] LABS: BILIRUBIN,TOTAL 0.4 mg/dL (0.2-1); CREATININE 0.7 mg/dL (0.55-1.3); TOT PROT 6.8 g/dl (6.4-8.2)
[2022-03-20] MEDS ORDERED: methylPREDNISolone NA SUCC 40 MG/1 ML VIAL IVPUSH SCH (09:45)
[2022-03-20] MEDS: LORATADINE 10 MG TABLET PO SCH (10:33)
[2022-03-20] MEDS: ENOXAPARIN NA (PORCINE) 40 MG/0.4 ML DISP.SYRIN SQ SCH (10:33)
[2022-03-20] MEDS: BUDESONIDE/FORMETEROL FUMARATE 160/4.5 mcg INHALER IH SCH (10:33)
[2022-03-20] MEDS: AZITHROMYCIN IVPB 250 MG in DEXTROSE 5%-WATER - 250 ML IVPB SCH (10:34)
[2022-03-20 12:27] LABS: ANISOCYTOSIS 0; MACROCYTOSIS 0; TEAR DROP CELLS 1+
== END 2022-03-20 13:48 | disposition home or self-care (01) | DRG 141 ==
LOC: JER 07:11 → JERBED 09:14 → OBSVTOIN 12:07 → J8W 20:19
PROVIDERS: ADMIT Internal Medicine; ATTEND Nurse Practitioner Acute Care
DX: J45.901 Unspecified asthma with (acute) exacerbation (principal); I10 Essential (primary) hypertension; I34.1 Nonrheumatic mitral (valve) prolapse; J21.0 Acute bronchiolitis due to respiratory syncytial virus
CPT/HCPCS: 0241U-QW; 36415; 71045-TC-FY; 80053; 81003; 82803; 82962; 83735; 84100; 84484; 85025; 85610; 85730; 87086; 93005; 93010; 94010; 94640; 99285-25; G0378